=== PATIENT | female | born 1935 | race Caucasian/White ===

== ENCOUNTER 2017-02-08 09:57 | Day surgery (SDC) | payer MEDICARE, BC ==
[2017-02-03 17:31] VITALS: BMI 25.6
[~2017-02-08 09:57] MED LIST: SODIUM CHLORIDE 0.9% 1,000 ML IV SCH; VANCOMYCIN 1,000 MG in SODIUM CHLORIDE 0.9% 250 ML IVPB NR; VANCOMYCIN 1,000 MG in SODIUM CHLORIDE 0.9% IRRIGATIO 1,000 ML IRRIGATION NR
[2017-02-08 10:37] VITALS: RESP 16; TEMP 98.2
[2017-02-08 11:20] LABS: INR 1.1 (<1.1); Prothrombin Time 10.7 sec (9.0-12.0)
[2017-02-08] MEDS ORDERED: fentaNYL (PF) 50 MCG/ML 2 ML AMP IV ONE (12:12)
[2017-02-08] MEDS ORDERED: MIDAZOLAM 2 MG/2 ML VIAL IV ONE (12:12)
[2017-02-08] MEDS ORDERED: LIDOCAINE 1% INJ 10MG/ML (20 ML MDV) SQ ONE (12:23)
[2017-02-08] MEDS ORDERED: HYDROcodone/APAP 5-325MG 1 EACH TAB PO PRN (12:53)
[2017-02-08] MEDS ORDERED: ACETAMINOPHEN TAB 325 MG TAB PO PRN (12:53)
--- NOTE | 2017-02-08 13:14 | P.PCN ---
Date of Procedure: 02/08/17 Preoperative Diagnosis: Battery depletion Postoperative Diagnosis: Battery replacement Procedure(s) Performed: Battery replacement Implants: Indications for Procedure: Operative Findings: Description of Procedure: HISTORY: This is a 81-year-old female with history of a permanent pacemaker implantation for sick sinus syndrome. Patient has reached [facility] and was brought in for elective replacement of the battery. CONSENT: I have discussed the risks and benefits as related to the above mentioned procedure and both sedation/analgesia as well as necessary blood product administration. The patient has indicated understanding and acceptance of the risks of the procedure discussed. PROCEDURE: Patient was brought to the lab in a fasting state. Patient was given IV Versed and fentanyl for sedation. The skin over the existing pulse generator was infiltrated with lidocaine. An incision was made in the skin and was deepened until the pectoral fascia was exposed. Hemostasis was obtained. The existing pulse generator was pulled out of the pocket. The lead was disconnected and were checked for thresholds. THRESHOLDS: VENTRICULAR: The minimum patient threshold is 1 V at a pulse width of 0.5 ms. The impedance was 419 ohms.R-wave : 2.5 mV THE LEADS: VENTRICULAR: This is manufactured by [employer]. Model number is 1488TC/52 and the serial number is [id number] THE NEW DEVICE: This is manufactured by [employer]. Model number is PM 1240 and the serial number is [id number] THE EXPLANTED DEVICE: This is manufactured by [employer]. Model number is 5130 and the serial number is [id number] . The lead was then connected to a new pulse generator . Pacemaker seems to function normally. The pocket was irrigated with antibiotics. The pocket was closed in the usual fashion. Pectoral fascia was closed with 2-0 Prolene, the subcutaneous tissue was closed with 3-0 Prolene and the skin was closed with 4-0 Prolene. Patient tolerated the procedure well . Patient will be monitored on the telemetry unit for 2-3 hours. If stable patient be discharged home later today. PLAN: Patient will be discharged home later today if stable. She will resume Coumadin tonight. She will resume Lovenox from tomorrow evening for 2 days. She will have a pro time on . FALLOW UP: With Dr. Weems in 1 week
[2017-02-08 14:17] VITALS: PULSE 60
[2017-02-08 15:57] VITALS: BP 138/72
--- NOTE | 2017-02-11 10:42 | CDI ---
Dr. Weems Per the Operative report, IV versed and fentanyl was given for sedation. Per new CMS ([employer]ers for Medicare and Medicaid Services) guidelines there is a change by which the work of moderate/conscious sedation will be reimbursed separately from procedure performed. Further clarification of the documentation of IV sedation is needed for proper reporting purposes. Please clarify the type of sedation this patient received during the cardiac catheterization. Moderate/conscious sedation MAC (unconscious sedation) General Anesthesia Other (please specify) Please document your findings in an addendum to the Procedure Note. If you have any questions about this query, you may contact Garage Manager, Joselyn Posey at between 8am and 6pm Wednesday-Wednesday Thank you for your time. RYDER Adams
== END 2017-02-08 16:34 | disposition home or self-care (01) ==
LOC: CATHEP 09:57
PROVIDERS: ATTEND Internal Medicine Cardiovascular Disease
DX: Z45.010 Encounter for checking and testing of cardiac pacemaker pulse generator [battery] (principal); Z95.2 Presence of prosthetic heart valve; I48.2 Chronic atrial fibrillation; I48.92 Unspecified atrial flutter; I49.5 Sick sinus syndrome; E03.9 Hypothyroidism, unspecified; F41.9 Anxiety disorder, unspecified; I27.2 Other secondary pulmonary hypertension; J44.9 Chronic obstructive pulmonary disease, unspecified; E66.3 Overweight; Z68.26 Body mass index [BMI] 26.0-26.9, adult; Z79.01 Long term (current) use of anticoagulants; Z79.82 Long term (current) use of aspirin; Z79.51 Long term (current) use of inhaled steroids; Z79.899 Other long term (current) drug therapy; Z88.1 Allergy status to other antibiotic agents; Z88.0 Allergy status to penicillin; Z87.891 Personal history of nicotine dependence
CPT/HCPCS: 33227; 85610; 99152; 99153; C1786; J2250; J3370; J2001; J3010

== ENCOUNTER 2019-01-04 09:46 | Day surgery (SDC) | payer MEDICARE, BC ==
[2019-01-02 12:06] VITALS: BMI 26.1
[~2019-01-04 09:46] MED LIST changes: +LACTATED RINGERS 1,000 ML IV SCH; +LIDOCAINE 1% 20 ML VIAL (10MG/ML) FOR IV START INTRADERMA PRN; +MOXIFLOXACIN HCL 0.5% DROPS 3 ML BTL OP NR; -SODIUM CHLORIDE 0.9% 1,000 ML IV SCH; +TETRACAINE 0.5% OPHTH (PF) DROPS 4 ML BTL OP NR; +TIMOLOL 0.5% OPHTH DROPS 5 ML BTL OP NR; -VANCOMYCIN 1,000 MG in SODIUM CHLORIDE 0.9% 250 ML IVPB NR; -VANCOMYCIN 1,000 MG in SODIUM CHLORIDE 0.9% IRRIGATIO 1,000 ML IRRIGATION NR
[2019-01-04 10:31] VITALS: TEMP 98
[2019-01-04] MEDS: PILOCARPINE 2% OPHTH DROPS 15 ML BTL OP NR ×3 (10:37→10:47)
[2019-01-04] MEDS ORDERED: HYALURONATE SODIUM INTRAOCULAR 1 EACH SYRINGE (12MG/ML) INTRAOCULA ONE (11:22)
[2019-01-04] MEDS ORDERED: LIDOCAINE (PF) 10 MG/ML 5ML AMP MISCELLANE ONE (11:22)
[2019-01-04] MEDS ORDERED: BALANCED SALT IRRIG SOLN COMB2 15 ML IRRIG.SOLN INTRAOCULA ONE (11:22)
[2019-01-04] MEDS ORDERED: MIDAZOLAM 2 MG/2 ML VIAL ONE (11:25)
[2019-01-04] MEDS ORDERED: fentaNYL (PF) 50 MCG/ML 2 ML AMP ONE (11:25)
[2019-01-04] MEDS ORDERED: EPINEPHrine (PF) 0.3 ML in BALANCED SALT IRRIG SOLN COMB2 500 ML IRRIGATION ONE (11:41)
[2019-01-04] MEDS ORDERED: FLUORESCEIN STRIPS 1 MG STRIP LEFT EYE ONE (12:01)
--- NOTE | 2019-01-04 12:08 | P.OP ---
Date of Procedure: 01/04/19 Preoperative Diagnosis: POAG moderate Postoperative Diagnosis: same Procedure(s) Performed: goniotomy left eye Implants: none Anesthesia: MAC Surgeon: Tarik Che Pathology: none sent Condition: stable Disposition: same day Indications for Procedure: moderate stage glaucoma Operative Findings: No complications, some hyphema
[2019-01-04 12:13] VITALS: RESP 18
[2019-01-04 12:38] VITALS: BP 107/61; PULSE 68
--- NOTE | 2019-01-04 19:55 | OP ---
OPERATIVE REPORT DATE OF SURGERY: January 04, 2019. PROCEDURE PERFORMED: Goniotomy of the left eye. PREOPERATIVE DIAGNOSIS: Primary open-angle glaucoma, moderate stage. POSTOPERATIVE DIAGNOSIS: Primary open angle glaucoma, moderate stage. SURGEON: Dr. Tarik Che. ANESTHESIA: Topical. ESTIMATED BLOOD LOSS: 5 mL. SPECIMEN: Taken none. NARRATIVE: After obtaining the appropriate consent, the patient was brought to the operating room. There she was placed under cardiac monitoring, prepped and draped in the usual sterile manner. She was approached from her left temporal side. At the 3 o'clock position, a 2.5 mm keratome was used to create a self-sealing corneal flap incision. Through this opening, 1% Xylocaine MPF 50 50 mix with balanced salt solution was injected into the anterior chamber. This was followed by placement of Amvisc in the anterior chamber and on the patient's cornea. She was then asked to rotate approximately 45 degrees away to her right to expose the anterior chamber angle. Using a aureliano and meet method, a [place] dual blade goniotomy knife was used to remove the trabecular mesh work for approximately 5 clock hours on the nasal side of the patient's eye. This was accomplished without difficulty. There was significant bleeding that was noted during the post removal phase which required several irrigation aspiration attempts to remove as much of the blood from the anterior chamber as possible. Also due to the low intra- ocular pressure, two sutures were placed at the temporal wound to reduce any egress of aqueous from the anterior chamber and the intra-ocular pressure was brought slightly above normal with balanced salt solution. She then received 2 drops of 0.5% timolol followed by 2 drops of moxifloxacin, was then lightly patched and shielded in the usual manner. She was returned to recovery with her head elevated approximately 45 degrees. There were no additional difficulties encountered during the procedure. She tolerated the procedure well and was returned to outpatient recovery in good condition. MMODL / IJN: [id number] /
== END 2019-01-04 12:42 | disposition home or self-care (01) ==
LOC: OR 09:46
PROVIDERS: ATTEND Ophthalmology
DX: H40.1131 Primary open-angle glaucoma, bilateral, mild stage (principal); H35.372 Puckering of macula, left eye; H52.13 Myopia, bilateral; H52.223 Regular astigmatism, bilateral; H52.4 Presbyopia; H00.023 Hordeolum internum right eye, unspecified eyelid; H00.026 Hordeolum internum left eye, unspecified eyelid; Z88.1 Allergy status to other antibiotic agents; Z88.0 Allergy status to penicillin; Z79.01 Long term (current) use of anticoagulants; Z79.82 Long term (current) use of aspirin; Z79.890 Hormone replacement therapy; Z79.51 Long term (current) use of inhaled steroids; Z79.899 Other long term (current) drug therapy; I48.91 Unspecified atrial fibrillation; I10 Essential (primary) hypertension; E07.9 Disorder of thyroid, unspecified; Z95.0 Presence of cardiac pacemaker; K21.9 Gastro-esophageal reflux disease without esophagitis; J44.9 Chronic obstructive pulmonary disease, unspecified; Z99.81 Dependence on supplemental oxygen
CPT/HCPCS: 65820; J2250; J0171; J2001; J3010

== ENCOUNTER 2021-06-29 23:56 | Inpatient (IN) | payer MEDICARE, BC ==
[2021-06-30] MEDS ORDERED: SODIUM CHLORIDE 0.9% 1,000 ML IV SCH (01:45)
[2021-06-30] MEDS ORDERED: ENOXAPARIN 80 MG/0.8 ML SYRINGE SQ ONE (01:45)
--- NOTE | 2021-06-30 04:43 | ED ---
SOB HPI - General Chief Complaint: Shortness of Breath Stated Complaint: YE Time Seen by Provider: 06/29/21 23:57 Source: patient, EMS Mode of arrival: EMS Limitations: no limitations - History of Present Illness Initial Comments: This patient is an 85-year-old woman who presents here as a transfer from [facility]. The patient had gone there with complaint that her breathing has worsened over the past 1-2 days. The patient has history of COPD and she believes also some underlying CHF. She also has history of atrial fibrillation and she did stop her blood thinning medication 3 days ago so that she could have a tooth extracted this week. The patient did not notice fever or chills. Has cough but nonproductive. No chest pain. No leg pain or swelling. MD Complaint: shortness of breath -: days(s) Severity scale (1-10): 0 Consistency: constant Improves With: nothing Worsens With: nothing Known History Of: COPD Associated Symptoms: cough - Related Data Home Oxygen Therapy: Yes Home Oxygen Amount: 2 Liters Home Medications Medication Instructions Recorded Confirmed Aspirin [Adult Low Dose Aspirin EC] 81 mg PO MOWEFR 02/03/17 01/04/19 Bimatoprost [Lumigan .01% Ophth 1 drop BOTH EYES HS 02/03/17 01/04/19 Soln] Brinzolamide [Azopt 1% Ophth Susp] 1 drop BOTH EYES BID 02/03/17 01/04/19 Budesonide-Formot 160-4.5 Mcg 2 puff INHALATION BID 02/03/17 01/04/19 [Symbicort 160-4.5 Mcg Inhaler] Digoxin [Lanoxin] 125 mcg PO DAILY 02/03/17 01/04/19 Eszopiclone [Lunesta] 2 mg PO HS 02/03/17 01/04/19 Furosemide [Lasix] 40 mg PO QAM 02/03/17 01/04/19 Lansoprazole [Prevacid] 30 mg PO DAILY 02/03/17 01/04/19 Levothyroxine Sodium [Synthroid] 300 mcg PO DAILY 02/03/17 01/04/19 Losartan [Cozaar] 50 mg PO HS 02/03/17 01/04/19 Montelukast [Singulair] 10 mg PO DAILY 02/03/17 01/04/19 PARoxetine HCL [Paxil] 5 mg PO DAILY 02/03/17 01/04/19 Potassium Chloride [Klor-Con 10 ER] 10 meq PO QAM 02/03/17 01/04/19 Warfarin Sodium [Coumadin] 5 mg PO PC-SUPPER 02/03/17 01/04/19 atenoloL [Tenormin] 50 mg PO DAILY 02/03/17 01/04/19 Albuterol Sulfate [Proair Hfa] 2 puff INHALATION DIRECTED PRN 01/02/19 01/04/19 Budesonide-Formot 160-4.5 Mcg 2 puff INHALATION BID 01/02/19 01/04/19 [Symbicort 160-4.5 Mcg Inhaler] Tiotropium 18 Mcg/Puff [Spiriva] 2 puff INHALATION DAILY 01/02/19 01/04/19 Allergies Allergy/AdvReac Type Severity Reaction Status Date / Time clindamycin Allergy Vomiting Verified 01/04/19 10:24 Penicillins Allergy Swelling, Verified 01/04/19 10:24 itching, red skin Review of Systems ROS Statement: Those systems with pertinent positive or pertinent negative responses have been documented in the HPI. ROS Other: All systems not noted in ROS Statement are negative. Constitutional: Denies: fever, chills Respiratory: Reports: cough, dyspnea, wheezes. Denies: hemoptysis Cardiovascular: Denies: chest pain, palpitations Gastrointestinal: Denies: abdominal pain, nausea, vomiting Genitourinary: Denies: dysuria Musculoskeletal: Denies: back pain Skin: Denies: rash Neurological: Denies: headache, weakness Past Medical History Past Medical History: Atrial Fibrillation, Asthma, Heart Failure, COPD, GERD/Reflux, Hypertension, Thyroid Disorder Additional Past Medical History / Comment(s): leaky heart valve, varicose veins, uses oxygen at night, History of Any Multi-Drug Resistant Organisms: None Reported Past Surgical History: Cardiac Valve Replacement, Section, Cho lecystectomy, Heart Catheterization, Pacemaker, Tonsillectomy Additional Past Surgical History / Comment(s): mitral valve replacement 1999, ashley cataracts Past Anesthesia/Blood Transfusion Reactions: No Reported Reaction Additional Past Anesthesia/Blood Transfusion Reaction / Comment(s): adopted Type of Cardiac Device: Permanent Pacemaker Device Placement Date:: 2016 Past Psychological History: No Psychological Hx Reported Smoking Status: Never smoker Past Alcohol Use History: None Reported Past Drug Use History: None Reported - Past Family History Mother Family Medical History: Unable to Obtain Additional Family Medical History / Comment(s): adopted General Exam Limitations: no limitations General appearance: alert, in no apparent distress Head exam: Present: atraumatic, normocephalic Eye exam: Present: normal appearance. Absent: scleral icterus, conjunctival injection ENT exam: Present: normal oropharynx Respiratory exam: Present: wheezes, prolonged expiratory. Absent: respiratory distress, rales, rhonchi, stridor, accessory muscle use, decreased breath sounds Cardiovascular Exam: Present: regular rate, normal rhythm, normal heart sounds. Absent: systolic murmur, diastolic murmur, rubs, gallop GI/Abdominal exam: Present: soft. Absent: distended, tenderness, guarding, rebound, rigid, mass Extremities exam: Present: normal inspection, normal capillary refill. Absent: pedal edema, calf tenderness Back exam: Present: normal inspection. Absent: CVA tenderness (R), CVA tenderness (L) Neurological exam: Present: alert Skin exam: Present: warm, dry, intact, normal color. Absent: rash Course Vital Signs 06/30/21 06/30/21 00:01 02:41 Temperature 98.4 F Pulse Rate 74 67 Respiratory 18 18 Rate Blood Pressure 114/59 97/65 O2 Sat by Pulse 99 98 Oximetry Disposition Disposition: ADMITTED IP TO THIS HOSP Condition: Fair
[2021-06-30] MEDS ORDERED: LEVOTHYROXINE 100 MCG TAB PO SCH (06:30)
[2021-06-30] MEDS: IPRATROPIUM-ALBUTEROL 3 ML NEB INHALATION SCH ×4 (07:37→19:59)
[2021-06-30] MEDS ORDERED: IPRATROPIUM 0.5 MG/2.5 ML NEBU INHALATION SCH (08:00)
[2021-06-30] MEDS ORDERED: SYMBICORT 160-4.5 MCG INHALER INHALATION SCH (08:00)
[2021-06-30] MEDS ORDERED: ALBUTEROL NEBULIZED 2.5 MG/3 ML INHALATION SCH (08:00)
[2021-06-30] MEDS ORDERED: LEVOFLOXACIN 750MG-D5W PMX 750 MG in DEXTROSE/WATER 1 150ML.BAG IVPB SCH (09:00)
[2021-06-30] MEDS: MONTELUKAST 10 MG TAB PO SCH (09:11)
[2021-06-30] MEDS: atenoloL 50 MG TAB PO SCH (09:11)
[2021-06-30] MEDS: ASPIRIN 81 MG PO SCH (09:12)
[2021-06-30] MEDS: POTASSIUM CHLORIDE ER 10 MEQ TAB.ER.PRT PO SCH (09:12)
[2021-06-30] MEDS: DIGOXIN 125 MCG TAB PO SCH (09:12)
[2021-06-30] MEDS: PANTOPRAZOLE 40 MG TABLET PO SCH (09:12)
[2021-06-30] MEDS: DORZOLAMIDE HCL 2% DROPS 10 ML BTL BOTH EYES SCH ×2 (09:15→23:12)
--- NOTE | 2021-06-30 09:16 | NM ---
EXAMINATION TYPE: NM pul vent and perfuse DATE OF EXAM: 06/30/2021 COMPARISON: Chest x-ray 06/29/2021 HISTORY: Difficulty breathing, rule out pulmonary embolus TECHNIQUE: Utilizing inhalation of 37 mCi Tc 99m DTPA aerosol and intravenous injection of 4.3 mCi o f Tc 99m MAA, ventilation and perfusion images are acquired post injection in multiple projections. FINDINGS: Decreased uptake noted at the right lung base on ventilation and perfusion imaging, triple matched de fect, there is a large area of abnormal attenuation seen on plain film related to the right heart bor estee, cardiomegaly, there is pleural effusion. Perfusion uptake is somewhat better than ventilation up take, central clumping of the radiopharmaceutical could be due to underlying COPD There is no evidenc e of mismatched defects. IMPRESSION: Intermediate probability for pulmonary embolism.
[2021-06-30] MEDS ORDERED: LOSARTAN 50 MG TAB PO SCH (10:30)
[2021-06-30] MEDS ORDERED: FUROSEMIDE 80 MG TAB PO SCH (10:30)
[2021-06-30] MEDS ORDERED: SYMBICORT 80-4.5 MCG INHALER INHALATION SCH (10:30)
--- NOTE | 2021-06-30 10:48 | ECHOF ---
Referral Reason:Heart Failure MEASUREMENTS -------- HEIGHT: 157.5 cm WEIGHT: 68.0 kg BP: RVIDd: 4.0 cm (< 3.3) IVSd: 1.1 cm (0.6 - 1.1) LVIDd: 3.8 cm (3.9 - 5.3) LVPWd: 1.2 cm (0.6 - 1.1) IVSs: 1.5 cm LVIDs: 2.2 cm LVPWs: 2.2 cm Ao Diam: 3.4 cm (2.0 - 3.7) AV Cusp: 1.1 cm (1.5 - 2.6) LA Diam: 6.0 cm (2.7 - 3.8) MV E Nate: 0.27 m/s MV DecT: 281 ms MV A Nate: 0.50 m/s MV E/A Ratio: 0.54 AV maxP.29 mmHg AV meanP.62 mmHg AR PHT: 590 ms RAP: 15.00 mmHg RVSP: 48.56 mmHg FINDINGS -------- Paced rhythm. This was a technically difficult study with suboptimal views. The left ventricular size is normal. There is mild concentric left ventricular hypertrophy. Overa ll left ventricular systolic function is normal with, an EF between 55 - 60 %. There is paradoxical /dysynergic septal motion consistent with right ventricular volume overload and/or elevated right emigdio tricular end-diastolic pressure. The right ventricle is moderately enlarged. The left atrium is markedly dilated. The right atrial size is normal. Lumason used Aortic valve is trileaflet and is mildly thickened. There is no evidence of aortic regurgitation. There is moderate aortic stenosis present. Peak/mean gradient across the Aortic Valve is 31.29mmHg / 16.62mmHg. Mild mitral regurgitation is present. Mechanical MVR is well seated. The tricuspid valve appears structurally normal. Severe tricuspid regurgitation present. There is moderate pulmonary hypertension. The right ventricular systolic pressure, as measured by Doppler, is 48.56mmHg. Trace/mild (physiologic) pulmonic regurgitation. The aortic root size is normal. The inferior vena cava is mildly dilated. There is no pericardial effusion. CONCLUSIONS -------- 1. The left ventricular size is normal. 2. There is mild concentric left ventricular hypertrophy. 3. Overall left ventricular systolic function is normal with, an EF between 55 - 60 %. 4. There is paradoxical/dysynergic septal motion consistent with right ventricular volume overload an d/or elevated right ventricular end-diastolic pressure. 5. The right ventricle is moderately enlarged. 6. Aortic valve is trileaflet and is mildly thickened. 7. There is no evidence of aortic regurgitation. 8. There is moderate aortic stenosis present. 9. Peak/mean gradient across the Aortic Valve is 31.29mmHg / 16.62mmHg. 10. Mild mitral regurgitation is present. 11. Mechanical MVR is well seated. 12. Severe tricuspid regurgitation present. 13. There is moderate pulmonary hypertension. 14. The right ventricular systolic pressure, as measured by Doppler, is 48.56mmHg. 15. Trace/mild (physiologic) pulmonic regurgitation. 16. The inferior vena cava is mildly dilated. 17. There is no pericardial effusion. OYSTER HARVESTER: Wanda Espinosa RDCS
[2021-06-30 11:02] LABS: Basophils % (A) 0 %; Eosinophils % (A) 0 %; HCT 29.4 % (34.0-46.0); HGB 9.8 gm/dL (11.4-16.0); Lymphocytes # (A) 0.4 k/uL (1.0-4.8); Lymphocytes % (A) 5 %; MCH 31.4 pg (25.0-35.0); MCHC 33.1 g/dL (31.0-37.0); MCV 94.8 fL (80.0-100.0); Mean Platelet Volume 8.8; Monocytes # (A) 0.2 k/uL (0-1.0); Monocytes % (A) 3 %; Neutrophils # (A) 7.4 k/uL (1.3-7.7); Neutrophils % (A) 91 %; RBC 3.11 m/uL (3.80-5.40); RDW 15.5 % (11.5-15.5); WBC 8.1 k/uL (3.8-10.6)
--- NOTE | 2021-06-30 11:12 | P.CNPUL ---
History of Present Illness Consult date: 06/30/21 Requesting physician: Zach Katz Reason for consult: dyspnea, COPD, hypoxemia, pleural effusion, abnormal CXR/CT Chief complaint: Shortness of breath. History of present illness: Pulmonary consultation dated 06/30/2021. This is an 85-year-old female with a history of multiple medical problems including atrial fibrillation, COPD, CHF, gastroesophageal reflux disease, hypertension, and hypothyroidism, who presents to the emergency department at [facility] in [place]. The patient was transferred down here to be evaluated. She was initially seen by the ER physician. She is a very poor historian but apparently her son noticed that she was having some difficulty in breathing, and she was shaking. She hadn't been feeling well for a couple days prior to admission. The patient apparently stopped her Coumadin a couple days ago, because she was going to have a tooth extracted today. A ventilation perfusion scan was ordered, and was indeterminate. Currently, she is on 2 L, nasal cannula. She's getting an IV at [facility], and IV Levaquin. She looks very comfortable, and is feeling much improved. Her primary physician in that area is Dr. Eboni Chaney. Labs and x-rays are ordered but are not yet back. The perfusion lung scan was determined to be intermediate probability for pulmonary embolism. Echocardiogram was ordered but not yet interpreted. Review of Systems REVIEW OF SYSTEMS: CONSTITUTIONAL: Weakness. NEUROLOGIC: Shaking. HEENT: [ Negative.] CARDIAC: [Negative.] PULMONARY: Shortness of breath. GI: [Negative.] : [Negative.] RHEUMATOLOGIC: [ Negative.] IMMUNOLOGIC: [ Negative.] ENDOCRINE: [Negative. ] DERMATOLOGIC: [Negative.] Past Medical History Past Medical History: Atrial Fibrillation, Asthma, Heart Failure, COPD, GERD/Reflux, Hypertension, Thyroid Disorder Additional Past Medical History / Comment(s): leaky heart valve, varicose veins, uses oxygen at night, History of Any Multi-Drug Resistant Organisms: None Reported Past Surgical History: Cardiac Valve Replacement, Section, Cholecystectomy, Heart Catheterization, Pacemaker, Tonsillectomy Additional Past Surgical History / Comment(s): mitral valve replacement 1999, ashley cataracts Past Anesthesia/Blood Transfusion Reactions: No Reported Reaction Additional Past Anesthesia/Blood Transfusion Reaction / Comment(s): adopted Type of Cardiac Device: Permanent Pacemaker Device Placement Date:: 2016 Past Psychological History: No Psychological Hx Reported Smoking Status: Never smoker Past Alcohol Use History: None Reported Past Drug Use History: None Reported - Past Family History Mother Family Medical History: Unable to Obtain Additional Family Medical History / Comment(s): adopted Medications and Allergies Home Medications Medication Instructions Recorded Confirmed Type Bimatoprost [Lumigan .01% Ophth 1 drop BOTH EYES HS 02/03/17 06/30/21 History Soln] Brinzolamide [Azopt 1% Ophth Susp] 1 drop RIGHT EYE BID 02/03/17 06/30/21 History Digoxin [Lanoxin] 125 mcg PO DAILY 02/03/17 06/30/21 History Eszopiclone [Lunesta] 2 mg PO HS 02/03/17 06/30/21 History Furosemide [Lasix] 80 mg PO DAILY 02/03/17 06/30/21 History Lansoprazole [Prevacid] 30 mg PO DAILY 02/03/17 06/30/21 History Montelukast [Singulair] 10 mg PO DAILY 02/03/17 06/30/21 History PARoxetine HCL [Paxil] 5 mg PO DAILY 02/03/17 06/30/21 History Potassium Chloride [Klor-Con 10 ER] 20 meq PO DAILY 02/03/17 06/30/21 History Warfarin Sodium [Coumadin] 5 mg PO HS 02/03/17 06/30/21 History atenoloL [Tenormin] 50 mg PO DAILY 02/03/17 06/30/21 History Calcium Carbonate/Vitamin D3 1 tab PO DAILY 06/30/21 06/30/21 History [Calcium 600 mg-Vit D3 5 mcg (200 unit)] Fluticasone/Umeclidin/Vilanter 1 puff INHALATION RT-DAILY 06/30/21 06/30/21 History [Trelegy Ellipta 100-62.5-25] Furosemide [Lasix] 40 mg PO DAILY@1500 06/30/21 06/30/21 History Levothyroxine Sodium [Synthroid] 75 mcg PO DAILY 06/30/21 06/30/21 History Losartan Potassium 100 mg PO DAILY 06/30/21 06/30/21 History Meclizine [Antivert] 12.5 mg PO Q6H PRN 06/30/21 06/30/21 History Spironolactone [Aldactone] 25 mg PO DAILY 06/30/21 06/30/21 History Warfarin [Coumadin] 0.5 mg PO HS 06/30/21 06/30/21 History hydrALAZINE HCL [Apresoline] 25 mg PO BID 06/30/21 06/30/21 History Allergies Allergy/AdvReac Type Severity Reaction Status Date / Time Penicillins Allergy Swelling, Verified 06/30/21 09:30 itching, red skin clindamycin AdvReac Vomiting Verified 06/30/21 09:30 Physical Exam Osteopathic Statement: *. No significant issues noted on an osteopathic structural exam other than those noted in the History and Physical/Consult. Vitals: Vital Signs Temp Pulse Resp BP Pulse Ox 06/30/21 09:05 98.2 F 60 18 120/60 98 06/30/21 02:41 67 18 97/65 98 06/30/21 00:01 98.4 F 74 18 114/59 99 Intake and Output 06/29/21 06/30/21 06/30/21 22:59 06:59 14:59 Other: Weight 68.039 kg No acute distress, oriented 3. Currently on 2 L nasal cannula. No evidence of any respiratory distress including use of accessory muscles or conversational dyspnea. No audible wheezing. HEENT examination is grossly unremarkable. Neck supple. Full range of motion. No adenopathy thyromegaly or neck vein distention. Cardiovascular examination reveals regular rhythm rate. S1-S2 normal. No S3 or S4. No discernible murmur noted. Heart sounds are distant. Heart rate 60 bpm. Lungs reveal bilateral mild to moderate rhonchi. A few basilar crackles. No wheezes. Breath sounds equal bilaterally. Saturations are 98% on 2 L. Abdomen soft bowel sounds are heard. No masses or tenderness. Extremities are intact. No cyanosis clubbing or edema. Skin is without rash or lesion. Neurologic examination is brief but nonfocal. Assessment and Plan Assessment: Acute hypoxemic respiratory failure, likely multifactorial, in part related to underlying COPD exacerbation, possible CHF, and also possible pneumonia. History of chronic atrial fibrillation, chronically on Coumadin, which has been stopped recently for a dental extraction. Status post pacemaker insertion and mitral valve surgery. History of asthma. History of CHF. Gastroesophageal reflux disease. History of essential hypertension. Hypothyroidism. Lifelong nontobacco use. Plan: Plan dated 06/30/2021. There is no x-ray to review so one was ordered. Likewise, we had old labs from the outside hospital. Hence, labs are ordered including a CBC, comprehensive metabolic profile, pro-calcitonin level and BNP. Additional recommendations and suggestions are forthcoming. Prognosis is guarded. Currently, the patient looks very comfortable. She's currently on 2 L. She is receiving IV Levaquin. The pro-calcitonin level at the outside hospital was very elevated. Repeated here. Additional recommendations and suggestions are forthcoming. Time with Patient: Greater than 30
[2021-06-30 11:13] LABS: INR 1.1 (<1.2); Prothrombin Time 11.4 sec (9.0-12.0)
[2021-06-30 11:30] LABS: Platelet Count 105 k/uL (150-450)
[2021-06-30] MEDS: SPIRONOLACTONE 25 MG TAB PO SCH (12:00)
[2021-06-30] MEDS: hydrALAZINE HCL 25 MG TAB PO SCH ×2 (12:01→20:45)
[2021-06-30 12:36] LABS: Albumin 3.1 g/dL (3.5-5.0); Calcium 8.5 mg/dL (8.4-10.2); Potassium 4.9 mmol/L (3.5-5.1); Total Protein 5.6 g/dL (6.3-8.2)
[2021-06-30] MEDS: CALCIUM CARB-VIT D 500 MG-5 MCG TAB PO SCH (13:08)
[2021-06-30] MEDS: PARoxetine 10 MG TAB PO SCH (13:08)
[2021-06-30] MEDS: LEVOTHYROXINE 75 MCG TAB PO SCH (13:08)
[2021-06-30] MEDS ORDERED: FUROSEMIDE 40 MG TAB PO SCH (15:00)
--- NOTE | 2021-06-30 16:00 | XR ---
EXAMINATION TYPE: XR chest 2V DATE OF EXAM: 06/30/2021 COMPARISON: Chest x-ray 06/29/2021 from outside institution HISTORY: COPD TECHNIQUE: Frontal and lateral views of the chest are obtained. FINDINGS: Findings are similar to prior exam. Patient is post median sternotomy. There is a generato r in the left pectoral region. The heart is enlarged. Interstitium appears improved. There is a lead in the right atrium. There is blunting the right cost phrenic angle. No evident pneumothorax. Aorta i s dense. IMPRESSION: Marked cardiomegaly, probable right pleural effusion and associated atelectasis, correla te to exclude pneumonia. There may be improvement in interstitial edema.
--- NOTE | 2021-06-30 18:03 | P.HPIM ---
History of Present Illness H&P Date: 06/30/21 Chief Complaint: Short of breath This is a pleasant 85-year-old patient Dr. Eboni Chaney. Patient is transferred here from [facility]. Patient at the baseline uses 2 L of oxygen at night. Able to get from the house. Patient presents with worsening short of breath for last 4 days. No edema. No cough. She having chills. Decreased appetite. Patient been having 3 or 4 bowel movements a day. Soft. Patient is underlying atrial fibrillation rate controlled. Patient had her Coumadin discontinued 3 days ago for about towards intervention. Patient did test negative for influenza AB and COVID another hospital. Patient has some urinary symptoms. Review of systems: GEN.: Tired chills decreased appetite EYES: None HEENT: None NECK: None RESPIRATORY: As above CARDIOVASCULAR: None GASTROINTESTINAL: Some loose stools GENITOURINARY: As above MUSCULOSKELETAL: Joint pains LYMPHATICS: None HEMATOLOGICAL: None PSYCHIATRY: None NEUROLOGICAL: None Past medical history to include: Atrial fibrillation, COPD, CHF, GERD, hypertension, hypothyroid, varicose veins, home oxygen 2 L at night Social history: Lives alone. Smoked a pack a day for 20 years stopped in 1977. Family history: Adopted Physical examination: VITAL SIGNS: 98.4, 74, 18, 140s/59, 99% on 3 L GENERAL: BMI 27.4, reclining in bed, slightly short of breath, not in distress. EYES: Pupils equal. Conjunctiva normal. HEENT: External appearance of nose and ears normal, oral cavity grossly normal. NECK: JVD not raised; masses not palpable. HEART: Irregular heart sounds; no edema. LUNGS: Respiratory rate increased; decreased breaths on mild wheezing, occasional crackles. ABDOMEN: Soft, nontender, liver spleen not palpable, no masses palpable. PSYCH: Alert and oriented x3; mood and affect normal MUSCULAR skeletal: Evidence of OA. NEUROLOGICAL: Cranial nerves grossly intact; no facial asymmetry, power and sensation grossly intact. LYMPHATICS: No lymph nodes palpable in the axilla and neck INVESTIGATIONS, reviewed in the clinical context: WBC 8.1 hemoglobin 9.8 platelets 105 lymphocytes 0.4 sodium 126 potassium 4.9 BUN 61 creatinine 2.03 Pro-calcitonin 30.9 EKG tracing personally reviewed by me-atrial fibrillation with some ST segment changes. VQ scan: Intermediate probably for PE. 2-D echocardiogram: EF 55-60%. Moderate aortic stenosis. Mechanical mitral valve. Severe tricuspid regurgitation. Moderate pulmonary hypertension. Chest x-ray film personally reviewed by me-right upper lobe infiltrate and possible right basilar infiltrate/effusion Assessment and plan: -Suspect right-sided pneumonia. Gram-negative organism possibly. Patient presents with chills and 4 days of increasing shortness of breath. Started on IV Levaquin by pulmonary. -Acute COPD exacerbation in an ex-smoker DuoNeb. Changed to inhaled Pulmicort and Perforomist. IV Solu-Medrol. -Hyponatremia from decreased solute intake Encourage oral intake. Increase IV fluids to 50 mL an hour. -Hypothyroid Synthroid 75 g a day -Essential hypertension with CK D. Currently blood pressure running on the lower side. Continue atenolol 50 mg day. Cut back Cozaar to 50 mg daily. [Stop the 100 mg dose] -Possible CKD. Ultrasound. UA. Hold Lasix for now. Follow renal function closely. Patient is getting 150 mg of Cozaar. Decreased to 50 mg daily. -Anxiety not otherwise specified Paxil 20 mg daily -Pacemaker for sick sinus syndrome Telemetry -Mechanical mitral valve Follow INR. Lovenox 70 mg subcu every 12 hours until INR therapeutic. Past Medical History Past Medical History: Atrial Fibrillation, Asthma, Heart Failure, COPD, GERD/Reflux, Hypertension, Thyroid Disorder Additional Past Medical History / Comment(s): leaky heart valve, varicose veins, uses oxygen at night, History of Any Multi-Drug Resistant Organisms: None Reported Past Surgical History: Cardiac Valve Replacement, Section, Cholecystectomy, Heart Catheterization, Pacemaker, Tonsillectomy Additional Past Surgical History / Comment(s): mitral valve replacement 1999, ashley cataracts Past Anesthesia/Blood Transfusion Reactions: No Reported Reaction Additional Past Anesthesia/Blood Transfusion Reaction / Comment(s): adopted Type of Cardiac Device: Permanent Pacemaker Device Placement Date:: 2016 Past Psychological History: No Psychological Hx Reported Smoking Status: Never smoker Past Alcohol Use History: None Reported Past Drug Use History: None Reported - Past Family History Mother Family Medical History: Unable to Obtain Additional Family Medical History / Comment(s): adopted Medications and Allergies Home Medications Medication Instructions Recorded Confirmed Type Bimatoprost [Lumigan .01% Ophth 1 drop BOTH EYES HS 02/03/17 06/30/21 History Soln] Brinzolamide [Azopt 1% Ophth Susp] 1 drop RIGHT EYE BID 02/03/17 06/30/21 History Digoxin [Lanoxin] 125 mcg PO DAILY 02/03/17 06/30/21 History Eszopiclone [Lunesta] 2 mg PO HS 02/03/17 06/30/21 History Furosemide [Lasix] 80 mg PO DAILY 02/03/17 06/30/21 History Lansoprazole [Prevacid] 30 mg PO DAILY 02/03/17 06/30/21 History Montelukast [Singulair] 10 mg PO DAILY 02/03/17 06/30/21 History PARoxetine HCL [Paxil] 5 mg PO DAILY 02/03/17 06/30/21 History Potassium Chloride [Klor-Con 10 ER] 20 meq PO DAILY 02/03/17 06/30/21 History Warfarin Sodium [Coumadin] 5 mg PO HS 02/03/17 06/30/21 History atenoloL [Tenormin] 50 mg PO DAILY 02/03/17 06/30/21 History Calcium Carbonate/Vitamin D3 1 tab PO DAILY 06/30/21 06/30/21 History [Calcium 600 mg-Vit D3 5 mcg (200 unit)] Fluticasone/Umeclidin/Vilanter 1 puff INHALATION RT-DAILY 06/30/21 06/30/21 History [Trelegy Ellipta 100-62.5-25] Furosemide [Lasix] 40 mg PO DAILY@1500 06/30/21 06/30/21 History Levothyroxine Sodium [Synthroid] 75 mcg PO DAILY 06/30/21 06/30/21 History Losartan Potassium 100 mg PO DAILY 06/30/21 06/30/21 History Meclizine [Antivert] 12.5 mg PO Q6H PRN 06/30/21 06/30/21 History Spironolactone [Aldactone] 25 mg PO DAILY 06/30/21 06/30/21 History Warfarin [Coumadin] 0.5 mg PO HS 06/30/21 06/30/21 History hydrALAZINE HCL [Apresoline] 25 mg PO BID 06/30/21 06/30/21 History Allergies Allergy/AdvReac Type Severity Reaction Status Date / Time Penicillins Allergy Swelling, Verified 06/30/21 09:30 itching, red skin clindamycin AdvReac Vomiting Verified 06/30/21 09:30 Physical Exam Vitals: Vital Signs Temp Pulse Resp BP Pulse Ox 06/30/21 09:05 98.2 F 60 18 120/60 98 06/30/21 02:41 67 18 97/65 98 06/30/21 00:01 98.4 F 74 18 114/59 99 Intake and Output 06/29/21 06/30/21 06/30/21 22:59 06:59 14:59 Other: Weight 68.039 kg Results CBC & Chem 7: 06/30/21 10:42 06/30/21 10:42
--- NOTE | 2021-06-30 19:28 | US ---
EXAMINATION TYPE: US kidneys/renal and bladder DATE OF EXAM: 06/30/2021 COMPARISON: NONE CLINICAL HISTORY: Assessment for chronic kidney disease. Assess for CKD. Hx renal cyst. EXAM MEASUREMENTS: Right Kidney: 9.3 x 4.2 x 4.4 cm Left Kidney: 9.1 x 4.5 x 4.8 cm Right Kidney: Anechoic area seen inferiorly: 1.6 x 1.6 x 1.7 cm. Complex area seen mid-inferior: 1.9 x 1.1 x 1.2 cm. No hydronephrosis. Left Kidney: Anechoic area seen superiorly: 2.4 x 1.6 x 1.7 cm. Subcentimeter anechoic area seen mid. No hydronephrosis. Bladder: Appears anechoic. Bilateral Jets seen: No IMPRESSION: No hydronephrosis. Bilateral renal cysts to include mildly complex cyst in the right kidney midpole. Recommend one-year follow-up to document stability if no prior studies available for comparison.
[2021-06-30] MEDS ORDERED: ZOLPIDEM 5 MG TAB PO PRN (19:56)
[2021-06-30] MEDS: FORMOTEROL FUMARATE 20 MCG/2 ML NEBU INHALATION SCH (20:00)
[2021-06-30] MEDS: BUDESONIDE 1 MG/2 ML NEBU INHALATION SCH (20:00)
[2021-06-30 20:36] LABS: Glucose,Whole Blood 132 mg/dL (75-99)
[2021-06-30] MEDS: INSULIN DETEMIR (LEVEMIR) 100 UNIT/ML SYR SQ SCH (20:44)
[2021-06-30] MEDS: TEMAZEPAM 15 MG CAP PO SCH (20:44)
[2021-06-30] MEDS: methylPREDNISolone SOD SUCCI 40 MG/ML 1 ML VIAL IV SCH ×2 (20:45→23:43)
[2021-06-30] MEDS: INSULIN ASPART (NovoLOG) 100 UNIT/ML VIAL SQ SCH (20:45)
[2021-06-30] MEDS: LOSARTAN 50 MG TAB PO SCH (20:46)
[2021-06-30] MEDS ORDERED: ENOXAPARIN 30 MG/0.3 ML SYRINGE SQ SCH (21:00)
[2021-06-30] MEDS: WARFARIN 5 MG TAB PO SCH (21:29)
[2021-06-30] MEDS: WARFARIN 0.5 MG TAB PO SCH (21:30)
[2021-06-30] MEDS: ENOXAPARIN 80 MG/0.8 ML SYRINGE SQ SCH (21:30)
[2021-06-30] MEDS: SODIUM CHLORIDE 0.9% 1,000 ML IV SCH (23:12)
[2021-06-30] MEDS: LATANOPROST 0.005% OPHTH DROPS 2.5 ML BTL BOTH EYES SCH (23:12)
[2021-07-01 03:41] LABS: Appearance,Urine Clear (Clear); Bilirubin,Urine Negative (Negative); Blood,Urine Negative (Negative); Color,Urine Light Yellow; Glucose,Urine (UA) Negative (Negative); Ketones,Urine Negative (Negative); Leukocyte Esterase,Urine Negative (Negative); Nitrite,Urine Negative (Negative); Protein,Urine Negative (Negative); Specific Gravity,Urine 1.009 (1.001-1.035); Urobilinogen,Urine <2.0 mg/dL (<2.0)
[2021-07-01 06:13] LABS: Glucose,Whole Blood 140 mg/dL (75-99)
[2021-07-01] MEDS: LEVOTHYROXINE 75 MCG TAB PO SCH (06:15)
[2021-07-01] MEDS: INSULIN ASPART (NovoLOG) 100 UNIT/ML VIAL SQ SCH ×4 (06:17→21:11)
[2021-07-01 07:53] LABS: Calcium 8.9 mg/dL (8.4-10.2); Potassium 4.7 mmol/L (3.5-5.1)
[2021-07-01 07:59] LABS: Prothrombin Time 10.6 sec (9.0-12.0)
[2021-07-01] MEDS: BUDESONIDE 1 MG/2 ML NEBU INHALATION SCH ×2 (08:17→19:21)
[2021-07-01] MEDS: IPRATROPIUM-ALBUTEROL 3 ML NEB INHALATION SCH ×4 (08:17→19:21)
[2021-07-01] MEDS: FORMOTEROL FUMARATE 20 MCG/2 ML NEBU INHALATION SCH ×2 (08:17→19:29)
[2021-07-01] MEDS: ENOXAPARIN 80 MG/0.8 ML SYRINGE SQ SCH ×2 (09:29→21:10)
[2021-07-01] MEDS: methylPREDNISolone SOD SUCCI 40 MG/ML 1 ML VIAL IV SCH ×2 (09:29→21:10)
[2021-07-01] MEDS: SPIRONOLACTONE 25 MG TAB PO SCH (09:29)
[2021-07-01] MEDS: hydrALAZINE HCL 25 MG TAB PO SCH ×2 (09:30→21:08)
[2021-07-01] MEDS: CALCIUM CARB-VIT D 500 MG-5 MCG TAB PO SCH (09:30)
[2021-07-01] MEDS: PANTOPRAZOLE 40 MG TABLET PO SCH (09:30)
[2021-07-01] MEDS: PARoxetine 10 MG TAB PO SCH (09:30)
[2021-07-01] MEDS: POTASSIUM CHLORIDE ER 10 MEQ TAB.ER.PRT PO SCH (09:30)
[2021-07-01] MEDS: atenoloL 50 MG TAB PO SCH (09:30)
[2021-07-01] MEDS: DIGOXIN 125 MCG TAB PO SCH (09:30)
[2021-07-01] MEDS: MONTELUKAST 10 MG TAB PO SCH (09:30)
[2021-07-01 11:13] VITALS: BMI 27.6
[2021-07-01] MEDS: DORZOLAMIDE HCL 2% DROPS 10 ML BTL BOTH EYES SCH ×2 (11:39→21:17)
[2021-07-01 11:52] LABS: Glucose,Whole Blood 117 mg/dL (75-99)
--- NOTE | 2021-07-01 12:32 | P.PN ---
Progress Note - Text Progress Note Date: 07/01/21 Chief Complaint: Short of breath This is a pleasant 85-year-old patient Dr. Eboni Chaney. [facility] Patient at the baseline uses 2 L of oxygen at night. Able to get from the house. Patient presents with worsening short of breath for last 4 days. No edema. No cough. She having chills. Decreased appetite. Patient been having 3 or 4 bowel movements a day. Soft. Patient is underlying atrial fibrillation rate controlled. Patient had her Coumadin discontinued 3 days ago for about towards intervention. Patient did test negative for influenza AB and COVID another hospital. Patient has some urinary symptoms. Admitted with right-sided pneumonia, COPD exacerbation, hyponatremia. Started on IV Levaquin. IV fluids for renal failure. Does off Cozaar cutback. IV Solu-Medrol. INR subtherapeutic. Started on Lovenox therapeutic dose. 07/01/2021: Feeling better. Sitting up on a chair. Decreased wheezing. Eating better. Renal function some improvement. IV fluids increased 200 mL an hour. IV Solu-Medrol cutback to every 12. Review of systems: Was done for constitutional, cardiovascular, GI, pulmonary. relevant finding as above Active Medications Albuterol/Ipratropium (Ipratropium-Albuterol 3 Ml Neb) 3 ml INHALATION RT-QID [facility] Last Admin: 07/01/21 11:30 Dose: 3 ml Documented by: Aspirin (Aspirin 81 Mg) 81 mg PO MOWEFR [facility] Last Admin: 06/30/21 09:12 Dose: 81 mg Documented by: Atenolol (Atenolol 50 Mg Tab) 50 mg PO DAILY [facility] Last Admin: 07/01/21 09:30 Dose: 50 mg Documented by: Budesonide (Budesonide 1 Mg/2 Ml Nebu) 1 mg INHALATION RT-BID [facility] Last Admin: 07/01/21 08:17 Dose: 1 mg Documented by: Calcium Carbonate (Calcium Carb-Vit D 500 Mg-5 Mcg Tab) 1 each PO DAILY [facility] Last Admin: 07/01/21 09:30 Dose: 1 each Documented by: Digoxin (Digoxin 125 Mcg Tab) 125 mcg PO DAILY [facility] Last Admin: 07/01/21 09:30 Dose: 125 mcg Documented by: Dorzolamide HCl (Dorzolamide Hcl 2% Drops 10 Ml Btl) 2 drops BOTH EYES BID [facility] Last Admin: 07/01/21 11:39 Dose: Not Given Documented by: Enoxaparin Sodium (Enoxaparin 80 Mg/0.8 Ml Syringe) 70 mg SQ BID [facility] Last Admin: 07/01/21 09:29 Dose: 70 mg Documented by: Formoterol Fumarate (Formoterol Fumarate 20 Mcg/2 Ml Nebu) 20 mcg INHALATION RT-BID [facility] Last Admin: 07/01/21 08:17 Dose: 20 mcg Documented by: Hydralazine HCl (Hydralazine Hcl 25 Mg Tab) 25 mg PO BID [facility] Last Admin: 07/01/21 09:30 Dose: 25 mg Documented by: Levofloxacin 500 mg/ IV (Solution) 100 mls @ 100 mls/hr IVPB Q48H [facility] Sodium Chloride (Saline 0.9%) 1,000 mls @ 100 mls/hr IV .Q10H [facility] Last Admin: 06/30/21 23:12 Dose: Not Given Documented by: Insulin Aspart (Insulin Aspart (Novolog) 100 Unit/Ml Vial) 0 unit SQ [facility]; Protocol Last Admin: 07/01/21 12:09 Dose: Not Given Documented by: Insulin Detemir (Insulin Detemir (Levemir) 100 Unit/Ml Syr) 14 unit SQ [facility] Last Admin: 06/30/21 20:44 Dose: Not Given Documented by: Latanoprost (Latanoprost 0.005% Ophth Drops 2.5 Ml Btl) 1 drops BOTH EYES [facility] Last Admin: 06/30/21 23:12 Dose: Not Given Documented by: Levothyroxine Sodium (Levothyroxine 75 Mcg Tab) 75 mcg PO DAILY@0630 [facility] Last Admin: 07/01/21 06:15 Dose: 75 mcg Documented by: Losartan Potassium (Losartan 50 Mg Tab) 50 mg PO HS [facility] Last Admin: 06/30/21 20:46 Dose: Not Given Documented by: Methylprednisolone Sodium Succinate (Methylprednisolone Sod Succi 40 Mg/Ml 1 Ml Vial) 40 mg IV Q12H [facility] Miscellaneous Information (Warfarin Per Pharmacy) 1 each MISCELLANE DIRECTED PRN; Protocol PRN Reason: Per Protocol Montelukast Sodium (Montelukast 10 Mg Tab) 10 mg PO DAILY [facility] Last Admin: 07/01/21 09:30 Dose: 10 mg Documented by: Pantoprazole Sodium (Pantoprazole 40 Mg Tablet) 40 mg PO DAILY [facility] Last Admin: 07/01/21 09:30 Dose: 40 mg Documented by: Paroxetine HCl (Paroxetine 10 Mg Tab) 5 mg PO DAILY [facility] Last Admin: 07/01/21 09:30 Dose: 5 mg Documented by: Potassium Chloride (Potassium Chloride Er 10 Meq Tab.Er.Prt) 10 meq PO QAM [facility] Last Admin: 07/01/21 09:30 Dose: 10 meq Documented by: Spironolactone (Spironolactone 25 Mg Tab) 25 mg PO DAILY [facility] Last Admin: 07/01/21 09:29 Dose: 25 mg Documented by: Temazepam (Temazepam 15 Mg Cap) 15 mg PO HS [facility] Last Admin: 06/30/21 20:44 Dose: 15 mg Documented by: Warfarin Sodium (Warfarin 5 Mg Tab) 5 mg PO HS [facility]; Protocol Last Admin: 06/30/21 21:29 Dose: 5 mg Documented by: Warfarin Sodium (Warfarin 0.5 Mg Tab) 0.5 mg PO HS [facility]; Protocol Last Admin: 06/30/21 21:30 Dose: Not Given Documented by: Zolpidem Tartrate (Zolpidem 5 Mg Tab) 2.5 mg PO HS PRN PRN Reason: Insomnia Past medical history to include: Atrial fibrillation, COPD, CHF, GERD, hypertension, hypothyroid, varicose veins, home oxygen 2 L at night Social history: Lives alone. Smoked a pack a day for 20 years stopped in 1977. Family history: Adopted Physical examination: VITAL SIGNS: 97.9, 60, 18, 125-68, 100% on 2 L GENERAL: Sitting up in a chair, awake, breathing stable EYES: Pupils equal. Conjunctiva normal. HEENT: External appearance of nose and ears normal, oral cavity grossly normal. NECK: JVD not raised; masses not palpable. HEART: Irregular heart sounds; no edema. LUNGS: Respiratory rate increased; decreased breaths sounds ABDOMEN: Soft, nontender, liver spleen not palpable, no masses palpable. PSYCH: Alert and oriented x3; mood and affect normal MUSCULAR skeletal: Evidence of OA. INVESTIGATIONS, reviewed in the clinical context: July 01: INR 1 potassium 4.7 sodium 131 BUN 64 creatinine 1.88 UA: Negative Renal ultrasound: Showing renal cyst. WBC 8.1 hemoglobin 9.8 platelets 105 lymphocytes 0.4 sodium 126 potassium 4.9 BUN 61 creatinine 2.03 Pro-calcitonin 30.9 EKG tracing personally reviewed by me-atrial fibrillation with some ST segment changes. VQ scan: Intermediate probably for PE. 2-D echocardiogram: EF 55-60%. Moderate aortic stenosis. Mechanical mitral valve. Severe tricuspid regurgitation. Moderate pulmonary hypertension. Chest x-ray film personally reviewed by me-right upper lobe infiltrate and possible right basilar infiltrate/effusion Assessment and plan: -Suspect right-sided pneumonia. Gram-negative organism possibly. Patient presents with chills and 4 days of increasing shortness of breath. IV Levaquin -Acute COPD exacerbation in an ex-smoker: Improving DuoNeb. Changed to inhaled Pulmicort and Perforomist. IV Solu-Medrol 40 mg every 12. -Hyponatremia from decreased solute intake Encourage oral intake. Increase IV fluids to 100 mL an hour. -Severe tricuspid regurgitation Follow clinically -Secondary moderate pulmonary hypertension from COPD Follow clinically -Hypothyroid Synthroid 75 g a day -Essential hypertension with CK D. Currently blood pressure running on the lower side. Continue atenolol 50 mg day. Cozaar decreased to 50 mg a day -Possible CKD. Cannot rule out acute component. Ultrasound showing renal cyst.. UA: Unremarkable. Hold Lasix for now. Follow renal function closely. IV fluids -Anxiety not otherwise specified Paxil 20 mg daily -Pacemaker for sick sinus syndrome Telemetry -Mechanical mitral valve Follow INR. Lovenox 70 mg subcu every 12 hours until INR therapeutic. Decrease Solu-Medrol to 40 mg every 12. Increase IV fluids 100 mL an hour. Repeat labs. Discussed with the patient.
--- NOTE | 2021-07-01 12:58 | P.PN ---
Subjective Progress Note Date: 07/01/21 Principal diagnosis: Acute hypoxic respiratory failure, COPD exacerbation, CHF, and possible pneumonia This is an 85-year-old female with a history of multiple medical problems in cluding atrial fibrillation, COPD, CHF, gastroesophageal reflux disease, hypertension, and hypothyroidism, who presents to the emergency department at [facility] in [place]. The patient was transferred down here to be evaluated. She was initially seen by the ER physician. She is a very poor historian but apparently her son noticed that she was having some difficulty in breathing, and she was shaking. She hadn't been feeling well for a couple days prior to admission. The patient apparently stopped her Coumadin a couple days ago, because she was going to have a tooth extracted today. A ventilation perfusion scan was ordered, and was indeterminate. Currently, she is on 2 L, nasal cannula. She's getting an IV at KVO, and IV Levaquin. She looks very comfortable, and is feeling much improved. Her primary physician in that area is Dr. Eboni Chaney. Labs and x-rays are ordered but are not yet back. The perfusion lung scan was determined to be intermediate probability for pulmonary embolism. Echocardiogram was ordered but not yet interpreted. On 07/01/2021 patient seen in follow-up on selective care unit, she is sitting up in the chair, she looks very comfortable, no dyspnea, only occasional cough, mild congestion, no phlegm production, she is currently off the oxygen, she is breathing comfortably, no complaints of chest discomfort, she is on point and was seen at a rate of 50 ML per hour. She is on Levaquin for possibility of underlying pneumonia, her pro-calcitonin level came back at 30.9, supporting possibility of underlying bacterial pneumonia. Does not appear to be fluid overloaded, and despite elevated proBNP patient's oxygenation seems to be stable, and she does not appear to be in acute exacerbation of CHF clinically. She was given IV fluids, and her renal function is improved on today's labs, BUN is 64 and creatinine is down to 1.8. Serum sodium is improved and is at 131, the rest of electrolytes were within normal limits. Objective - Vital Signs Vital signs: Vital Signs Temp 97.9 F 07/01/21 08:00 Pulse 65 07/01/21 11:49 Resp 18 07/01/21 08:38 BP 125/68 07/01/21 08:00 Pulse Ox 100 07/01/21 08:17 Intake & Output 06/30/21 07/01/21 07/01/21 18:59 06:59 18:59 Intake Total 240 690 120 Balance 240 690 120 Weight 68.039 kg 68.4 kg 68.4 kg Intake: Intake, IV Titration 450 Amount Sodium Chloride 0.9% 1, 450 000 ml @ 50 mls/hr IV . Q20H [facility] Rx#:[id number] Oral 240 240 120 Other: # Voids 2 2 1 # Bowel Movements 0 - Exam GENERAL EXAM: Alert, very pleasant, 85-year-old white female, on room air comfortable in no apparent distress. HEAD: Normocephalic/atraumatic. EYES: Normal reaction of pupils, equal size. Conjunctiva pink, sclera white. NOSE: Clear with pink turbinates. THROAT: No erythema or exudates. NECK: No masses, no JVD, no thyroid enlargement, no adenopathy. CHEST: No chest wall deformity. Symmetrical expansion. LUNGS: Equal air entry with no crackles, wheeze, rhonchi or dullness. CVS: Regular rate and rhythm, normal S1 and S2, no gallops, very loud systolic murmur throughout the precordium, no rubs ABDOMEN: Soft, nontender. No hepatosplenomegaly, normal bowel sounds, no guarding or rigidity. EXTREMITIES: No clubbing, no edema, no cyanosis, 2+ pulses and upper and lower extremities. MUSCULOSKELETAL: Muscle strength and tone normal. SPINE: No scoliosis or deformity SKIN: No rashes CENTRAL NERVOUS SYSTEM: Alert and oriented -3. No focal deficits, tone is normal in all 4 extremities. PSYCHIATRIC: Alert and oriented -3. Appropriate affect. Intact judgment and insight. - Labs CBC & Chem 7: 06/30/21 10:42 07/01/21 06:57 Labs: Abnormal Lab Results - Last 24 Hours (Table) 06/30/21 06/30/21 07/01/21 Range/Units 10:42 20:35 06:12 Sodium (137-145) mmol/L BUN (7-17) mg/dL Creatinine (0.52-1.04) mg/dL Glucose (74-99) mg/dL POC Glucose (mg/dL) 132 H 140 H (75-99) mg/dL Procalcitonin 30.90 H (0.02-0.09) ng/mL 07/01/21 07/01/21 Range/Units 06:57 11:50 Sodium 131 L (137-145) mmol/L BUN 64 H (7-17) mg/dL Creatinine 1.88 H (0.52-1.04) mg/dL Glucose 144 H (74-99) mg/dL POC Glucose (mg/dL) 117 H (75-99) mg/dL Procalcitonin (0.02-0.09) ng/mL Assessment and Plan Plan: Assessment: #1. Acute hypoxic respiratory failure, multifactorial, related to acute exacerbation of COPD, and underlying pneumonia based on elevated protein S level. Possibility of acute exacerbation of CHF is also considered an elevated proBNP at 16,000. However clinically patient seems to be euvolemic #2. History of chronic atrial fibrillation, chronically on Coumadin, which was recently stopped for a dental extraction, currently patient is back on Coumadin, and subcu Lovenox for bridge #3. Status post pacemaker insertion #4. History of mitral valve replacement in 1999 #5. Hypertension #6. Hypothyroidism #7. Nonsmoker Plan: Continue antibiotics Vital signs are stable, patient is on room air, no fever or chills Renal function is improving Diuretics remain on hold Continue nebulized bronchodilators Send urine culture Continue IV steroids Follow-up chest chest x-ray in the morning Continue to follow I performed a history & physical examination of the patient and discussed their management with my nurse practitioner, Janina Clarke. I reviewed the nurse practitioner's note and agree with the documented findings and plan of care. Lung sounds are positive for bibasilar rales throughout the lung epperson. The findings and the impression was discussed with the patient. I attest to the d ocumentation by the nurse practitioner. Time with Patient: Less than 30
[2021-07-01] MEDS: SODIUM CHLORIDE 0.9% 1,000 ML IV SCH (16:26)
[2021-07-01 16:58] LABS: Glucose,Whole Blood 143 mg/dL (75-99)
[2021-07-01 20:30] LABS: Glucose,Whole Blood 189 mg/dL (75-99)
[2021-07-01] MEDS: INSULIN DETEMIR (LEVEMIR) 100 UNIT/ML SYR SQ SCH (21:01)
[2021-07-01] MEDS: WARFARIN 0.5 MG TAB PO SCH (21:06)
[2021-07-01] MEDS: LOSARTAN 50 MG TAB PO SCH (21:07)
[2021-07-01] MEDS: WARFARIN 5 MG TAB PO SCH (21:08)
[2021-07-01] MEDS: TEMAZEPAM 15 MG CAP PO SCH (21:17)
[2021-07-01] MEDS: LATANOPROST 0.005% OPHTH DROPS 2.5 ML BTL BOTH EYES SCH (21:17)
[2021-07-02] MEDS: SODIUM CHLORIDE 0.9% 1,000 ML IV SCH ×2 (02:16→16:01)
[2021-07-02 06:11] LABS: Glucose,Whole Blood 128 mg/dL (75-99)
[2021-07-02] MEDS: INSULIN ASPART (NovoLOG) 100 UNIT/ML VIAL SQ SCH ×4 (06:19→20:50)
[2021-07-02] MEDS: LEVOTHYROXINE 75 MCG TAB PO SCH (06:25)
[2021-07-02] MEDS: atenoloL 50 MG TAB PO SCH (08:06)
[2021-07-02] MEDS: MONTELUKAST 10 MG TAB PO SCH (08:06)
[2021-07-02] MEDS: PANTOPRAZOLE 40 MG TABLET PO SCH (08:06)
[2021-07-02] MEDS: DIGOXIN 125 MCG TAB PO SCH (08:06)
[2021-07-02] MEDS: ENOXAPARIN 80 MG/0.8 ML SYRINGE SQ SCH ×2 (08:06→23:24)
[2021-07-02] MEDS: POTASSIUM CHLORIDE ER 10 MEQ TAB.ER.PRT PO SCH (08:06)
[2021-07-02] MEDS: hydrALAZINE HCL 25 MG TAB PO SCH ×2 (08:06→20:57)
[2021-07-02] MEDS: CALCIUM CARB-VIT D 500 MG-5 MCG TAB PO SCH (08:06)
[2021-07-02] MEDS: PARoxetine 10 MG TAB PO SCH (08:07)
[2021-07-02] MEDS: methylPREDNISolone SOD SUCCI 40 MG/ML 1 ML VIAL IV SCH ×2 (08:07→20:57)
[2021-07-02] MEDS: BUDESONIDE 1 MG/2 ML NEBU INHALATION SCH ×2 (08:19→20:09)
[2021-07-02] MEDS: FORMOTEROL FUMARATE 20 MCG/2 ML NEBU INHALATION SCH ×2 (08:19→20:09)
[2021-07-02] MEDS: IPRATROPIUM-ALBUTEROL 3 ML NEB INHALATION SCH ×4 (08:19→20:09)
[2021-07-02 08:58] LABS: INR 1.1 (<1.2); Prothrombin Time 11.8 sec (9.0-12.0)
[2021-07-02] MEDS ORDERED: LEVOFLOXACIN 500MG-D5W PMX 500 MG in DEXTROSE/WATER 1 100ML.BAG IVPB SCH (09:00)
[2021-07-02 09:08] LABS: Potassium 4.9 mmol/L (3.5-5.1)
[2021-07-02] MEDS: DORZOLAMIDE HCL 2% DROPS 10 ML BTL BOTH EYES SCH ×2 (10:59→21:06)
[2021-07-02 11:31] LABS: Glucose,Whole Blood 171 mg/dL (75-99)
[2021-07-02] MEDS: ASPIRIN 81 MG PO SCH (12:53)
--- NOTE | 2021-07-02 13:02 | XR ---
EXAMINATION TYPE: XR chest 1V portable DATE OF EXAM: 07/02/2021 Comparison: 06/30/2021 Clinical History: 85-year-old female shortness of breath, dyspnea Findings: Median sternotomy wires are present with post-CABG clips in the mediastinum. Left anterior chest wall pacemaker generator with a single right ventricular lead. Right heart margin remains obscured by adj acent pleural parenchymal opacity. Small to moderate right pleural effusion with adjacent opacity is similar to slightly decreased. Mild hyperinflation. Either some atelectasis or fluid thickening the r ight minor fissure. Impression: Suspect underlying COPD. Continued small to moderate right pleural effusion with adjacent atelectasis and/or consolidation similar to slightly decreased.
--- NOTE | 2021-07-02 13:43 | P.PN ---
Subjective Progress Note Date: 07/02/21 Principal diagnosis: Acute hypoxic respiratory failure, COPD exacerbation, CHF, and possible pneumonia This is an 85-year-old female with a history of multiple medical problems in cluding atrial fibrillation, COPD, CHF, gastroesophageal reflux disease, hypertension, and hypothyroidism, who presents to the emergency department at [facility] in [place]. The patient was transferred down here to be evaluated. She was initially seen by the ER physician. She is a very poor historian but apparently her son noticed that she was having some difficulty in breathing, and she was shaking. She hadn't been feeling well for a couple days prior to admission. The patient apparently stopped her Coumadin a couple days ago, because she was going to have a tooth extracted today. A ventilation perfusion scan was ordered, and was indeterminate. Currently, she is on 2 L, nasal cannula. She's getting an IV at [facility], and IV Levaquin. She looks very comfortable, and is feeling much improved. Her primary physician in that area is Dr. Eboni Chaney. Labs and x-rays are ordered but are not yet back. The perfusion lung scan was determined to be intermediate probability for pulmonary embolism. Echocardiogram was ordered but not yet interpreted. On 07/01/2021 patient seen in follow-up on selective care unit, she is sitting up in the chair, she looks very comfortable, no dyspnea, only occasional cough, mild congestion, no phlegm production, she is currently off the oxygen, she is breathing comfortably, no complaints of chest discomfort, she is on point and was seen at a rate of 50 ML per hour. She is on Levaquin for possibility of underlying pneumonia, her pro-calcitonin level came back at 30.9, supporting possibility of underlying bacterial pneumonia. Does not appear to be fluid overloaded, and despite elevated proBNP patient's oxygenation seems to be stable, and she does not appear to be in acute exacerbation of CHF clinically. She was given IV fluids, and her renal function is improved on today's labs, BUN is 64 and creatinine is down to 1.8. Serum sodium is improved and is at 131, the rest of electrolytes were within normal limits. On 07/02/2021 patient seen in follow-up on selective care unit, she is a bit more dyspneic on today's exam, she was placed on supplemental oxygen, although she is not requiring very much oxygen, she sat 100% on 2 L. She states she does have increased exertional dyspnea. She has been off her Lasix since admission, she was actually given fluids related to acute kidney injury, she does have history of mechanical mitral valve replacement, and she does have moderately severe aortic stenosis. Her blood cultures from [facility] showed gram- positive cocci in chains, final culture is pending, currently patient is on Levaquin for empiric antibiotic coverage, she has had no fever or chills, mildly congestive cough, no phlegm production. Repeat chest x-ray is pending for today. Today's labs have been reviewed, sodium is 133, potassium is 4.9, chloride is 105, CO2 is 22, BUN is 56, creatinine is 1.68, renal profile is improving, her INR today is 1.1, and patient is on therapeutic dose Lovenox 70 mg twice daily, and on the Coumadin Objective - Vital Signs Vital signs: Vital Signs Temp 97.9 F 07/02/21 11:41 Pulse 65 07/02/21 11:51 Resp 18 07/02/21 13:14 BP 147/62 07/02/21 11:41 Pulse Ox 100 07/02/21 11:41 Intake & Output 07/01/21 07/02/21 07/02/21 18:59 06:59 18:59 Intake Total 600 118 Output Total 700 400 Balance 600 -700 -282 Weight 68.4 kg 71.8 kg Intake: Oral 600 118 Output: Urine 700 400 Other: # Voids 1 # Bowel Movements 0 - Exam GENERAL EXAM: Alert, very pleasant, 85-year-old white female, mildly short of breath with exertion, currently on 2 L of oxygen pulse ox of 100% on room air comfortable in no apparent distress. HEAD: Normocephalic/atraumatic. EYES: Normal reaction of pupils, equal size. Conjunctiva pink, sclera white. NOSE: Clear with pink turbinates. THROAT: No erythema or exudates. NECK: No masses, no JVD, no thyroid enlargement, no adenopathy. CHEST: No chest wall deformity. Symmetrical expansion. LUNGS: Equal air entry with basilar crackles, diminished breath sounds at right base CVS: Regular rate and rhythm, normal S1 and S2, no gallops, very loud systolic murmur throughout the precordium, no rubs ABDOMEN: Soft, nontender. No hepatosplenomegaly, normal bowel sounds, no guarding or rigidity. EXTREMITIES: No clubbing, no edema, no cyanosis, 2+ pulses and upper and lower extremities. MUSCULOSKELETAL: Muscle strength and tone normal. SPINE: No scoliosis or deformity SKIN: No rashes CENTRAL NERVOUS SYSTEM: Alert and oriented -3. No focal deficits, tone is norm al in all 4 extremities. PSYCHIATRIC: Alert and oriented -3. Appropriate affect. Intact judgment and insight. - Labs CBC & Chem 7: 06/30/21 10:42 07/02/21 07:27 Labs: Abnormal Lab Results - Last 24 Hours (Table) 07/01/21 07/01/21 07/02/21 Range/Units 16:56 20:28 06:09 Sodium (137-145) mmol/L BUN (7-17) mg/dL Creatinine (0.52-1.04) mg/dL Glucose (74-99) mg/dL POC Glucose (mg/dL) 143 H 189 H 128 H (75-99) mg/dL Procalcitonin (0.02-0.09) ng/mL 07/02/21 07/02/21 07/02/21 Range/Units 07:27 07:27 11:29 Sodium 133 L (137-145) mmol/L BUN 56 H (7-17) mg/dL Creatinine 1.68 H (0.52-1.04) mg/dL Glucose 116 H (74-99) mg/dL POC Glucose (mg/dL) 171 H (75-99) mg/dL Procalcitonin 14.60 H (0.02-0.09) ng/mL Assessment and Plan Plan: Assessment: #1. Acute hypoxic respiratory failure, multifactorial, related to acute exacerbation of COPD, and underlying pneumonia based on procalcitonin. Possibility of acute exacerbation of CHF is also considered an elevated proBNP at 16,000. However clinically patient seems to be euvolemic #2. Right-sided pleural effusion, with the possibility of parapneumonic pleural effusion. We will obtain ultrasound of the chest #3. Gram-positive bacteremia, blood cultures drawn at [facility] showed gram-positive cocci in chains, possible strep pneumonia, awaiting final culture. Currently on Levaquin #4. History of chronic atrial fibrillation, chronically on Coumadin, which was recently stopped for a dental extraction, currently patient is back on Coumadin, and subcu Lovenox for bridge #5. Status post pacemaker insertion #6. History of mitral valve replacement in 1999 #7. Hypertension #8. Hypothyroidism #9. Nonsmoker Plan: Chest x-ray has been reviewed Obtain ultrasound of the chest to see if there is a sizable pleural effusion pocket on the right for drainage Continue current antibiotics Obtain follow-up blood cultures We'll consider right-sided thoracentesis if ultrasound the chest shows a sizable pleural effusion Will continue current medical treatment I performed a history & physical examination of the patient and discussed their management with my nurse practitioner, Janina Clarke. I reviewed the nurse practitioner's note and agree with the documented findings and plan of care. Lung sounds are positive for bibasilar rales throughout the lung epperson. The findings and the impression was discussed with the patient. I attest to the documentation by the nurse practitioner. Time with Patient: Less than 30
--- NOTE | 2021-07-02 14:45 | US ---
EXAMINATION TYPE: US chest DATE OF EXAM: 07/02/2021 COMPARISON: chest x-ray 07/02/2021 CLINICAL HISTORY: dyspnea. TECHNIQUE: Targeted ultrasound of the posterior bilateral hemithoraces EXAM MEASUREMENTS: Right Pleural Effusion pocket size: 7.1cmA/P Right skin surface to fluid distance: 2.1 cm A/P Left Pleural Effusion pocket size: 1.9 cm A/P Right side was marked for possible thoracentesis outside the dept. Left side was not marked for possible thoracentesis outside the dept. Pulmonologists are able to review the images in the patient?s EMR. IMPRESSIONS: Right pleural effusion greater than left
[2021-07-02 16:35] LABS: Glucose,Whole Blood 81 mg/dL (75-99)
[2021-07-02] MEDS ORDERED: WARFARIN 7.5 MG TAB PO ONE (18:00)
--- NOTE | 2021-07-02 20:13 | P.PN ---
Progress Note - Text Progress Note Date: 07/02/21 Chief Complaint: Short of breath This is a pleasant 85-year-old patient Dr. Eboni Chaney. Patient is transferred [facility]. Patient at the baseline uses 2 L of oxygen at night. Able to get from the house. Patient presents with worsening short of breath for last 4 days. No edema. No cough. She having chills. Decreased appetite. Patient been having 3 or 4 bowel movements a day. Soft. Patient is underlying atrial fibrillation rate controlled. Patient had her Coumadin discontinued 3 days ago for about towards intervention. Patient did test negative for influenza AB and COVID another hospital. Patient has some urinary symptoms. Admitted with right-sided pneumonia, COPD exacerbation, hyponatremia. Started on IV Levaquin. IV fluids for renal failure. Does off Cozaar cutback. IV Solu-Medrol. INR subtherapeutic. Started on Lovenox therapeutic dose. 07/01/2021: Feeling better. Sitting up on a chair. Decreased wheezing. Eating better. Renal function some improvement. IV fluids increased 200 mL an hour. IV Solu-Medrol cutback to every 12. 07/02/2021: Sitting up in a chair. A bit tired. Does not like hospital food. Son is visiting. Did walk in the hallway with assistance. Breathing better. Review of systems: Was done for constitutional, cardiovascular, GI, pulmonary. relevant finding as above Active Medications Albuterol/Ipratropium (Ipratropium-Albuterol 3 Ml Neb) 3 ml INHALATION RT-QID [facility] Last Admin: 07/02/21 15:48 Dose: 3 ml Documented by: Aspirin (Aspirin 81 Mg) 81 mg PO MOWEFR [facility] Last Admin: 07/02/21 12:53 Dose: Not Given Documented by: Atenolol (Atenolol 50 Mg Tab) 50 mg PO DAILY [facility] Last Admin: 07/02/21 08:06 Dose: 50 mg Documented by: Budesonide (Budesonide 1 Mg/2 Ml Nebu) 1 mg INHALATION RT-BID [facility] Last Admin: 07/02/21 08:19 Dose: 1 mg Documented by: Calcium Carbonate (Calcium Carb-Vit D 500 Mg-5 Mcg Tab) 1 each PO DAILY [facility] Last Admin: 07/02/21 08:06 Dose: 1 each Documented by: Digoxin (Digoxin 125 Mcg Tab) 125 mcg PO DAILY [facility] Last Admin: 07/02/21 08:06 Dose: 125 mcg Documented by: Dorzolamide HCl (Dorzolamide Hcl 2% Drops 10 Ml Btl) 2 drops BOTH EYES BID [facility] Last Admin: 07/02/21 10:59 Dose: Not Given Documented by: Enoxaparin Sodium (Enoxaparin 80 Mg/0.8 Ml Syringe) 70 mg SQ BID [facility] Last Admin: 07/02/21 08:06 Dose: 70 mg Documented by: Formoterol Fumarate (Formoterol Fumarate 20 Mcg/2 Ml Nebu) 20 mcg INHALATION RT-BID [facility] Last Admin: 07/02/21 08:19 Dose: 20 mcg Documented by: Hydralazine HCl (Hydralazine Hcl 25 Mg Tab) 25 mg PO BID [facility] Last Admin: 07/02/21 08:06 Dose: 25 mg Documented by: Levofloxacin 500 mg/ IV (Solution) 100 mls @ 100 mls/hr IVPB Q48H [facility] Last Admin: 07/02/21 08:09 Dose: 100 mls/hr Documented by: Insulin Aspart (Insulin Aspart (Novolog) 100 Unit/Ml Vial) 0 unit SQ [facility]; Protocol Last Admin: 07/02/21 16:36 Dose: Not Given Documented by: Insulin Detemir (Insulin Detemir (Levemir) 100 Unit/Ml Syr) 14 unit SQ [facility] Last Admin: 07/01/21 21:01 Dose: Not Given Documented by: Latanoprost (Latanoprost 0.005% Ophth Drops 2.5 Ml Btl) 1 drops BOTH EYES [facility] Last Admin: 07/01/21 21:17 Dose: Not Given Documented by: Levothyroxine Sodium (Levothyroxine 75 Mcg Tab) 75 mcg PO DAILY@0630 [facility] Last Admin: 07/02/21 06:25 Dose: 75 mcg Documented by: Losartan Potassium (Losartan 50 Mg Tab) 50 mg PO [facility] Last Admin: 07/01/21 21:07 Dose: 50 mg Documented by: Methylprednisolone Sodium Succinate (Methylprednisolone Sod Succi 40 Mg/Ml 1 Ml Vial) 40 mg IV Q12H [facility] Last Admin: 07/02/21 08:07 Dose: 40 mg Documented by: Miscellaneous Information (Warfarin Per Pharmacy) 1 each MISCELLANE DIRECTED PRN; Protocol PRN Reason: Per Protocol Montelukast Sodium (Montelukast 10 Mg Tab) 10 mg PO DAILY [facility] Last Admin: 07/02/21 08:06 Dose: 10 mg Documented by: Pantoprazole Sodium (Pantoprazole 40 Mg Tablet) 40 mg PO DAILY [facility] Last Admin: 07/02/21 08:06 Dose: 40 mg Documented by: Paroxetine HCl (Paroxetine 10 Mg Tab) 5 mg PO DAILY [facility] Last Admin: 07/02/21 08:07 Dose: 5 mg Documented by: Potassium Chloride (Potassium Chloride Er 10 Meq Tab.Er.Prt) 10 meq PO QAM [facility] Last Admin: 07/02/21 08:06 Dose: 10 meq Documented by: Temazepam (Temazepam 15 Mg Cap) 15 mg PO HS [facility] Last Admin: 07/01/21 21:17 Dose: Not Given Documented by: Zolpidem Tartrate (Zolpidem 5 Mg Tab) 2.5 mg PO HS PRN PRN Reason: Insomnia Last Admin: 07/01/21 21:07 Dose: 2.5 mg Documented by: Past medical history to include: Atrial fibrillation, COPD, CHF, GERD, hypertension, hypothyroid, varicose veins, home oxygen 2 L at night Social history: Lives alone. Smoked a pack a day for 20 years stopped in 1977. Family history: Adopted Physical examination: VITAL SIGNS: 97.9, 16, 18, 147 with 62, 100% on 2 L GENERAL: Sitting up in a chair, awake, breathing stable EYES: Pupils equal. Conjunctiva normal. HEENT: External appearance of nose and ears normal, oral cavity grossly normal. NECK: JVD not raised; masses not palpable. HEART: Irregular heart sounds; no edema. LUNGS: Respiratory rate increased; decreased breaths sounds ABDOMEN: Soft, nontender, liver spleen not palpable, no masses palpable. PSYCH: Alert and oriented x3; mood and affect normal MUSCULAR skeletal: Evidence of OA. INVESTIGATIONS, reviewed in the clinical context: July 02: Sodium 133 potassium 4.9 BUN 56 creatinine 1.68 procalcitonin 40.6 INR 1.1 July 01: INR 1 potassium 4.7 sodium 131 BUN 64 creatinine 1.88 UA: Negative Renal ultrasound: Showing renal cyst. WBC 8.1 hemoglobin 9.8 platelets 105 lymphocytes 0.4 sodium 126 potassium 4.9 BUN 61 creatinine 2.03 Pro-calcitonin 30.9 EKG tracing personally reviewed by me-atrial fibrillation with some ST segment changes. VQ scan: Intermediate probably for PE. 2-D echocardiogram: EF 55-60%. Moderate aortic stenosis. Mechanical mitral valve. Severe tricuspid regurgitation. Moderate pulmonary hypertension. Chest x-ray film personally reviewed by me-right upper lobe infiltrate and possible right basilar infiltrate/effusion Assessment and plan: -right-sided pneumonia. Gram-negative organism possibly. Patient presents with chills and 4 days of increasing shortness of breath. IV Levaquin -Acute COPD exacerbation in an ex-smoker: Improving DuoNeb. Changed to inhaled Pulmicort and Perforomist. IV Solu-Medrol 40 mg every 12. -Hyponatremia from decreased solute intake: Improving Encourage oral intake. Received IV fluids. -Severe tricuspid regurgitation Follow clinically -Secondary moderate pulmonary hypertension from COPD Follow clinically -Acute kidney injury, possibly prerenal/ATN.: Slow to respond Admission creatinine 2.03. Today 1.68. Gentle hydration overnight. -Hypothyroid Synthroid 75 g a day -Essential hypertension with CK D. Currently blood pressure running on the lower side. Continue atenolol 50 mg day. Cozaar decreased to 50 mg a day -Possible CKD. Cannot rule out acute component. Ultrasound showing renal cyst.. UA: Unremarkable. Hold Lasix for now. Follow renal function closely. IV fluids -Anxiety not otherwise specified Paxil 20 mg daily -Pacemaker for sick sinus syndrome Telemetry -Mechanical mitral valve Follow INR. Lovenox 70 mg subcu every 12 hours until INR therapeutic. Continue bronchodilators, IV Solu-Medrol. Subcu Lovenox. INR subtherapeutic. Follow renal function. Increase activity as tolerated. Discussed with the patient and son.
[2021-07-02] MEDS ORDERED: SODIUM CHLORIDE 0.9% 1,000 ML IV SCH (20:15)
[2021-07-02 20:26] LABS: Glucose,Whole Blood 102 mg/dL (75-99)
[2021-07-02] MEDS: INSULIN DETEMIR (LEVEMIR) 100 UNIT/ML SYR SQ SCH (20:50)
[2021-07-02] MEDS: LATANOPROST 0.005% OPHTH DROPS 2.5 ML BTL BOTH EYES SCH (20:57)
[2021-07-02] MEDS: LOSARTAN 50 MG TAB PO SCH (20:57)
[2021-07-02] MEDS: TEMAZEPAM 15 MG CAP PO SCH (23:30)
[2021-07-03 06:07] LABS: Glucose,Whole Blood 100 mg/dL (75-99)
[2021-07-03] MEDS: LEVOTHYROXINE 75 MCG TAB PO SCH (06:23)
[2021-07-03] MEDS: INSULIN ASPART (NovoLOG) 100 UNIT/ML VIAL SQ SCH ×4 (06:23→21:10)
[2021-07-03] MEDS: FORMOTEROL FUMARATE 20 MCG/2 ML NEBU INHALATION SCH ×2 (07:58→20:48)
[2021-07-03] MEDS: BUDESONIDE 1 MG/2 ML NEBU INHALATION SCH ×2 (07:58→20:48)
[2021-07-03] MEDS: IPRATROPIUM-ALBUTEROL 3 ML NEB INHALATION SCH ×4 (07:58→20:48)
[2021-07-03] MEDS: methylPREDNISolone SOD SUCCI 40 MG/ML 1 ML VIAL IV SCH ×2 (08:04→20:55)
[2021-07-03] MEDS: hydrALAZINE HCL 25 MG TAB PO SCH ×2 (08:04→20:57)
[2021-07-03] MEDS: PANTOPRAZOLE 40 MG TABLET PO SCH (08:04)
[2021-07-03] MEDS: atenoloL 50 MG TAB PO SCH (08:04)
[2021-07-03] MEDS: POTASSIUM CHLORIDE ER 10 MEQ TAB.ER.PRT PO SCH (08:04)
[2021-07-03] MEDS: DIGOXIN 125 MCG TAB PO SCH (08:04)
[2021-07-03] MEDS: CALCIUM CARB-VIT D 500 MG-5 MCG TAB PO SCH (08:04)
[2021-07-03] MEDS: MONTELUKAST 10 MG TAB PO SCH (08:04)
[2021-07-03] MEDS: PARoxetine 10 MG TAB PO SCH (08:04)
[2021-07-03] MEDS: DORZOLAMIDE HCL 2% DROPS 10 ML BTL BOTH EYES SCH ×2 (08:07→21:05)
[2021-07-03 09:25] LABS: INR 1.6 (<1.2); Prothrombin Time 15.8 sec (9.0-12.0)
[2021-07-03 09:44] LABS: Calcium 9.1 mg/dL (8.4-10.2); Potassium 5.1 mmol/L (3.5-5.1)
[2021-07-03 10:14] LABS: Basophils # (A) 0.1 k/uL (0-0.2); Basophils % (A) 1 %; Eosinophils % (A) 0 %; HCT 32.9 % (34.0-46.0); HGB 10.8 gm/dL (11.4-16.0); Lymphocytes # (A) 0.5 k/uL (1.0-4.8); Lymphocytes % (A) 8 %; MCH 31.7 pg (25.0-35.0); MCHC 32.9 g/dL (31.0-37.0); MCV 96.3 fL (80.0-100.0); Monocytes # (A) 0.2 k/uL (0-1.0); Monocytes % (A) 4 %; Neutrophils # (A) 5.3 k/uL (1.3-7.7); Neutrophils % (A) 86 %; Platelet Count 152 k/uL (150-450); RBC 3.41 m/uL (3.80-5.40); RDW 15.1 % (11.5-15.5); WBC 6.2 k/uL (3.8-10.6)
[2021-07-03 12:00] LABS: Glucose,Whole Blood 91 mg/dL (75-99)
--- NOTE | 2021-07-03 12:51 | P.PN ---
Progress Note - Text Progress Note Date: 07/03/21 Chief Complaint: Short of breath This is a pleasant 85-year-old patient Dr. Eboni Chaney. [facility] Patient at the baseline uses 2 L of oxygen at night. Able to get from the house. Patient presents with worsening short of breath for last 4 days. No edema. No cough. She having chills. Decreased appetite. Patient been having 3 or 4 bowel movements a day. Soft. Patient is underlying atrial fibrillation rate controlled. Patient had her Coumadin discontinued 3 days ago for about towards intervention. Patient did test negative for influenza AB and COVID another hospital. Patient has some urinary symptoms. Admitted with right-sided pneumonia, COPD exacerbation, hyponatremia. Started on IV Levaquin. IV fluids for renal failure. Does off Cozaar cutback. IV Solu-Medrol. INR subtherapeutic. Started on Lovenox therapeutic dose. 07/01/2021: Feeling better. Sitting up on a chair. Decreased wheezing. Eating better. Renal function some improvement. IV fluids increased 200 mL an hour. IV Solu-Medrol cutback to every 12. 07/02/2021: Sitting up in a chair. A bit tired. Does not like hospital food. Son is visiting. Did walk in the hallway with assistance. Breathing better. 07/03/2021: Feeling better. Breathing better. His renal function slowly improving. She had a breakfast today. No edema. He received some fluids overnight. Ultrasound chest showing pleural effusion. Being followed by jean gee. Review of systems: Was done for constitutional, cardiovascular, GI, pulmonary. relevant finding as above Active Medications Albuterol/Ipratropium (Ipratropium-Albuterol 3 Ml Neb) 3 ml INHALATION RT-QID [facility] Last Admin: 07/03/21 11:14 Dose: 3 ml Documented by: Aspirin (Aspirin 81 Mg) 81 mg PO MOWEFR [facility] Last Admin: 07/02/21 12:53 Dose: Not Given Documented by: Atenolol (Atenolol 50 Mg Tab) 50 mg PO DAILY [facility] Last Admin: 07/03/21 08:04 Dose: 50 mg Documented by: Budesonide (Budesonide 1 Mg/2 Ml Nebu) 1 mg INHALATION RT-BID [facility] Last Admin: 07/03/21 07:58 Dose: 1 mg Documented by: Calcium Carbonate (Calcium Carb-Vit D 500 Mg-5 Mcg Tab) 1 each PO DAILY [facility] Last Admin: 07/03/21 08:04 Dose: 1 each Documented by: Digoxin (Digoxin 125 Mcg Tab) 125 mcg PO DAILY [facility] Last Admin: 07/03/21 08:04 Dose: 125 mcg Documented by: Dorzolamide HCl (Dorzolamide Hcl 2% Drops 10 Ml Btl) 2 drops BOTH EYES BID [facility] Last Admin: 07/03/21 08:07 Dose: Not Given Documented by: Formoterol Fumarate (Formoterol Fumarate 20 Mcg/2 Ml Nebu) 20 mcg INHALATION RT-BID [facility] Last Admin: 07/03/21 07:58 Dose: 20 mcg Documented by: Hydralazine HCl (Hydralazine Hcl 25 Mg Tab) 25 mg PO BID [facility] Last Admin: 07/03/21 08:04 Dose: 25 mg Documented by: Levofloxacin 500 mg/ IV (Solution) 100 mls @ 100 mls/hr IVPB Q48H [facility] Last Admin: 07/02/21 08:09 Dose: 100 mls/hr Documented by: Insulin Aspart (Insulin Aspart (Novolog) 100 Unit/Ml Vial) 0 unit SQ [facility]; Protocol Last Admin: 07/03/21 12:03 Dose: Not Given Documented by: Insulin Detemir (Insulin Detemir (Levemir) 100 Unit/Ml Syr) 14 unit SQ [facility] Last Admin: 07/02/21 20:50 Dose: Not Given Documented by: Latanoprost (Latanoprost 0.005% Ophth Drops 2.5 Ml Btl) 1 drops BOTH EYES [facility] Last Admin: 07/02/21 20:57 Dose: 1 drops Documented by: Levothyroxine Sodium (Levothyroxine 75 Mcg Tab) 75 mcg PO DAILY@0630 [facility] Last Admin: 07/03/21 06:23 Dose: 75 mcg Documented by: Losartan Potassium (Losartan 50 Mg Tab) 50 mg PO [facility] Last Admin: 07/02/21 20:57 Dose: 50 mg Documented by: Methylprednisolone Sodium Succinate (Methylprednisolone Sod Succi 40 Mg/Ml 1 Ml Vial) 40 mg IV Q12H [facility] Last Admin: 07/03/21 08:04 Dose: 40 mg Documented by: Miscellaneous Information (Warfarin Per Pharmacy) 1 each [facility] DIRECTED PRN; Protocol PRN Reason: Per Protocol Montelukast Sodium (Montelukast 10 Mg Tab) 10 mg PO DAILY [facility] Last Admin: 07/03/21 08:04 Dose: 10 mg Documented by: Pantoprazole Sodium (Pantoprazole 40 Mg Tablet) 40 mg PO DAILY [facility] Last Admin: 07/03/21 08:04 Dose: 40 mg Documented by: Paroxetine HCl (Paroxetine 10 Mg Tab) 5 mg PO DAILY [facility] Last Admin: 07/03/21 08:04 Dose: 5 mg Documented by: Potassium Chloride (Potassium Chloride Er 10 Meq Tab.Er.Prt) 10 meq PO QAM [facility] Last Admin: 07/03/21 08:04 Dose: 10 meq Documented by: Temazepam (Temazepam 15 Mg Cap) 15 mg PO HS [facility] Last Admin: 07/02/21 23:30 Dose: 15 mg Documented by: Warfarin Sodium (Warfarin 3 Mg Tab) 6 mg PO ONCE@1800 ONE Stop: 07/03/21 18:01 Zolpidem Tartrate (Zolpidem 5 Mg Tab) 2.5 mg PO HS PRN PRN Reason: Insomnia Last Admin: 07/01/21 21:07 Dose: 2.5 mg Documented by: Past medical history to include: Atrial fibrillation, COPD, CHF, GERD, hypertension, hypothyroid, varicose veins, home oxygen 2 L at night Social history: Lives alone. Smoked a pack a day for 20 years stopped in 1977. Family history: Adopted Physical examination: VITAL SIGNS: 97.9, 61, 18, 1 26 x 60, 100% on 2 L GENERAL: Sitting up in a chair, awake, comfortable EYES: Pupils equal. Conjunctiva normal. HEENT: External appearance of nose and ears normal, oral cavity grossly normal. NECK: JVD not raised; masses not palpable. HEART: Irregular heart sounds; no edema. LUNGS: Respiratory rate increased; decreased breaths sounds ABDOMEN: Soft, nontender, liver spleen not palpable, no masses palpable. PSYCH: Alert and oriented x3; mood and affect normal MUSCULAR skeletal: Evidence of OA. INVESTIGATIONS, reviewed in the clinical context: July 03: White count 6.2 hemoglobin 10.8 INR 1.6 potassium 5.1. 43 creatinine 1.51 July 02: Sodium 133 potassium 4.9 BUN 56 creatinine 1.68 procalcitonin 40.6 INR 1.1 July 01: INR 1 potassium 4.7 sodium 131 BUN 64 creatinine 1.88 UA: Negative Renal ultrasound: Showing renal cyst. WBC 8.1 hemoglobin 9.8 platelets 105 lymphocytes 0.4 sodium 126 potassium 4.9 BUN 61 creatinine 2.03 Pro-calcitonin 30.9 EKG tracing personally reviewed by me-atrial fibrillation with some ST segment changes. VQ scan: Intermediate probably for PE. 2-D echocardiogram: EF 55-60%. Moderate aortic stenosis. Mechanical mitral valve. Severe tricuspid regurgitation. Moderate pulmonary hypertension. Chest x-ray film personally reviewed by me-right upper lobe infiltrate and possible right basilar infiltrate/effusion Assessment and plan: -right-sided pneumonia. Gram-negative organism possibly. Patient presents with chills and 4 days of increasing shortness of breath.: Better IV Levaquin-changed to by mouth Levaquin -Acute COPD exacerbation in an ex-smoker: Improving DuoNeb. Changed to inhaled Pulmicort and Perforomist. IV Solu-Medrol 40 mg every 12. -Hyponatremia from decreased solute intake: Improving Encourage oral intake. Received IV fluids. -Severe tricuspid regurgitation Follow clinically -Secondary moderate pulmonary hypertension from COPD Follow clinically -Acute kidney injury, possibly prerenal/ATN.: Slow to respond Admission creatinine 2.03. Today 1.51 t. -Hypothyroid Synthroid 75 g a day -Essential hypertension with CK D. Currently blood pressure running on the lower side. Continue atenolol 50 mg day. Cozaar decreased to 50 mg a day -Possible CKD. Baseline creatinine unknown Ultrasound showing renal cyst.. UA: Unremarkable. Hold Lasix for now. Follow renal function closely. IV fluids -Anxiety not otherwise specified Paxil 20 mg daily -Pacemaker for sick sinus syndrome Telemetry -Mechanical mitral valve Follow INR. Lovenox 70 mg subcu every 12 hours until INR therapeutic. Continue bronchodilators, change IV Solu-Medrol to by mouth prednisone tomorrow.. Subcu Lovenox. INR subtherapeutic. Follow renal function. Activity as tolerated. Change Levaquin to by mouth. We will change to oral prednisone in the morning. Stop digoxin because of renal function. Stop Levemir
--- NOTE | 2021-07-03 14:40 | P.PN ---
Subjective Progress Note Date: 07/03/21 Principal diagnosis: Acute hypoxic respiratory failure, COPD exacerbation, CHF, and possible pneumonia This is an 85-year-old female with a history of multiple medical problems in cluding atrial fibrillation, COPD, CHF, gastroesophageal reflux disease, hypertension, and hypothyroidism, who presents to the emergency department at [facility] in [place]. The patient was transferred down here to be evaluated. She was initially seen by the ER physician. She is a very poor historian but apparently her son noticed that she was having some difficulty in breathing, and she was shaking. She hadn't been feeling well for a couple days prior to admission. The patient apparently stopped her Coumadin a couple days ago, because she was going to have a tooth extracted today. A ventilation perfusion scan was ordered, and was indeterminate. Currently, she is on 2 L, nasal cannula. She's getting an IV at KVO, and IV Levaquin. She looks very comfortable, and is feeling much improved. Her primary physician in that area is Dr. Eboni Chaney. Labs and x-rays are ordered but are not yet back. The perfusion lung scan was determined to be intermediate probability for pulmonary embolism. Echocardiogram was ordered but not yet interpreted. On 07/01/2021 patient seen in follow-up on selective care unit, she is sitting up in the chair, she looks very comfortable, no dyspnea, only occasional cough, mild congestion, no phlegm production, she is currently off the oxygen, she is breathing comfortably, no complaints of chest discomfort, she is on point and was seen at a rate of 50 ML per hour. She is on Levaquin for possibility of underlying pneumonia, her pro-calcitonin level came back at 30.9, supporting possibility of underlying bacterial pneumonia. Does not appear to be fluid overloaded, and despite elevated proBNP patient's oxygenation seems to be stable, and she does not appear to be in acute exacerbation of CHF clinically. She was given IV fluids, and her renal function is improved on today's labs, BUN is 64 and creatinine is down to 1.8. Serum sodium is improved and is at 131, the rest of electrolytes were within normal limits. On 07/02/2021 patient seen in follow-up on selective care unit, she is a bit more dyspneic on today's exam, she was placed on supplemental oxygen, although she is not requiring very much oxygen, she sat 100% on 2 L. She states she does have increased exertional dyspnea. She has been off her Lasix since admission, she was actually given fluids related to acute kidney injury, she does have history of mechanical mitral valve replacement, and she does have moderately severe aortic stenosis. Her blood cultures from [facility] showed gram- positive cocci in chains, final culture is pending, currently patient is on Levaquin for empiric antibiotic coverage, she has had no fever or chills, mildly congestive cough, no phlegm production. Repeat chest x-ray is pending for today. Today's labs have been reviewed, sodium is 133, potassium is 4.9, chloride is 105, CO2 is 22, BUN is 56, creatinine is 1.68, renal profile is improving, her INR today is 1.1, and patient is on therapeutic dose Lovenox 70 mg twice daily, and on the Coumadin On 07/03/2021 patient is seen in follow-up on selective care unit, she is on 2 L of oxygen and her pulse ox the 100%, she states she does have enlarged exer tional dyspnea, and she feels better on oxygen as she does desaturate with ambulation. No complaints of chest pain, only occasional cough, no phlegm production. Ultrasound of the chest that has been completed showing right pleural effusion pocket of 7.1 cm, and left pleural effusion pocket of 1.9 cm. Patient is on Levaquin for empiric antibiotic coverage, Lasix still remains on hold, she did receive 7.5 mg of Coumadin last night, her INR today is 1.6. This morning his Lovenox has been held for possibility right-sided thoracentesis. Today's labs have been reviewed showing low blood cell, 6.2, hemoglobin is 10.8, sodium is 135, the rest of electrolytes were within normal limits, renal profile continues to improve, BUN 43 creatinine is 1.5. Objective - Vital Signs Vital signs: Vital Signs Temp 97.9 F 07/03/21 12:09 Pulse 61 07/03/21 12:09 Resp 18 07/03/21 13:40 BP 126/60 07/03/21 12:09 Pulse Ox 100 07/03/21 12:09 Intake & Output 07/02/21 07/03/21 07/03/21 18:59 06:59 18:59 Intake Total 354 720 Output Total 450 500 Balance -96 -500 720 Weight 71.1 kg Intake: Oral 354 720 Output: Urine 450 500 Other: # Voids 1 - Exam GENERAL EXAM: Alert, very pleasant, 85-year-old white female, mildly short of breath with exertion, currently on 2 L of oxygen pulse ox of 100% on room air comfortable in no apparent distress. HEAD: Normocephalic/atraumatic. EYES: Normal reaction of pupils, equal size. Conjunctiva pink, sclera white. NOSE: Clear with pink turbinates. THROAT: No erythema or exudates. NECK: No masses, no JVD, no thyroid enlargement, no adenopathy. CHEST: No chest wall deformity. Symmetrical expansion. LUNGS: Equal air entry with basilar crackles, diminished breath sounds at right base CVS: Regular rate and rhythm, normal S1 and S2, no gallops, very loud systolic murmur throughout the precordium, no rubs ABDOMEN: Soft, nontender. No hepatosplenomegaly, normal bowel sounds, no guarding or rigidity. EXTREMITIES: No clubbing, no edema, no cyanosis, 2+ pulses and upper and lower extremities. MUSCULOSKELETAL: Muscle strength and tone normal. SPINE: No scoliosis or deformity SKIN: No rashes CENTRAL NERVOUS SYSTEM: Alert and oriented -3. No focal deficits, tone is normal in all 4 extremities. PSYCHIATRIC: Alert and oriented -3. Appropriate affect. Intact judgment and insight. - Labs CBC & Chem 7: 07/03/21 08:57 07/03/21 08:57 Labs: Abnormal Lab Results - Last 24 Hours (Table) 07/02/21 07/03/21 07/03/21 Range/Units 20:24 06:06 08:57 RBC (3.80-5.40) m/uL Hgb (11.4-16.0) gm/dL Hct (34.0-46.0) % Lymphocytes # (1.0-4.8) k/uL PT 15.8 H (9.0-12.0) sec INR 1.6 H (<1.2) Sodium (137-145) mmol/L BUN (7-17) mg/dL Creatinine (0.52-1.04) mg/dL Glucose (74-99) mg/dL POC Glucose (mg/dL) 102 H 100 H (75-99) mg/dL 07/03/21 07/03/21 Range/Units 08:57 08:57 RBC 3.41 L (3.80-5.40) m/uL Hgb 10.8 L (11.4-16.0) gm/dL Hct 32.9 L (34.0-46.0) % Lymphocytes # 0.5 L (1.0-4.8) k/uL PT (9.0-12.0) sec INR (<1.2) Sodium 135 L (137-145) mmol/L BUN 43 H (7-17) mg/dL Creatinine 1.51 H (0.52-1.04) mg/dL Glucose 133 H (74-99) mg/dL POC Glucose (mg/dL) (75-99) mg/dL Assessment and Plan Plan: Assessment: #1. Acute hypoxic respiratory failure, multifactorial, related to acute exacerbation of COPD, and underlying pneumonia based on procalcitonin. Possibility of acute exacerbation of CHF is also considered an elevated proBNP at 16,000. However clinically patient seems to be euvolemic #2. Right-sided pleural effusion, with the possibility of parapneumonic pleural effusion. US chest showed 7.1 cm pocket #3. Gram-positive bacteremia, blood cultures drawn at [facility] showed gram-positive cocci in chains, possible strep pneumonia, awaiting final culture. Currently on Levaquin #4. History of chronic atrial fibrillation, chronically on Coumadin, which was recently stopped for a dental extraction, currently patient is back on Coumadin, and subcu Lovenox for bridge #5. Status post pacemaker insertion #6. History of mitral valve replacement in 1999 #7. Hypertension #8. Hypothyroidism #9. Nonsmoker Plan: ultrasound the chest has been reviewed Will proceed with right thoracentesis Held am dose lovenox INR 1.6 Continue levaquin Pleural fluid will be sent for analysis, cytology and cultures I performed a history & physical examination of the patient and discussed their management with my nurse practitioner, Janina Clarke. I reviewed the nurse practitioner's note and agree with the documented findings and plan of care. Lung sounds are positive for bibasilar rales throughout the lung epperson. The findings and the impression was discussed with the patient. I attest to the documentation by the nurse practitioner. Time with Patient: Less than 30
--- NOTE | 2021-07-03 15:54 | XR ---
EXAMINATION TYPE: XR chest 1V portable DATE OF EXAM: 07/03/2021 CLINICAL HISTORY: Post right-sided thoracentesis. TECHNIQUE: Single AP portable upright view of the chest is obtained. COMPARISON: Chest x-ray from one day earlier FINDINGS: Improved but persistent small right pleural effusion. No pneumothorax after right-sided th oracentesis. Gross cardiomegaly with single lead pacemaker redemonstrated. Overlying Sternal wires ag ain seen. Patchy left basilar linear scarring and/or atelectasis redemonstrated. Osseous structures r emain demineralized. IMPRESSION: No pneumothorax after right-sided thoracentesis
[2021-07-03 16:27] LABS: Glucose,Whole Blood 108 mg/dL (75-99)
--- NOTE | 2021-07-03 16:29 | PCN ---
PROCEDURE NOTE PULMONARY/CRITICAL CARE PROCEDURE NOTE: RIGHT THORACENTESIS: PREOPERATIVE DIAGNOSIS: Right pleural effusion. POSTOPERATIVE DIAGNOSIS: Right pleural effusion. OPERATORS: 1. Dr. Koehler. 2. Dr. Clarke. The patient's procedure took placed in room 372. There was informed consent and universal timeout verifying correct patient, procedure, site, positioning and implant (s) or special equipment if applicable. Ultrasound guidance was used and appropriate fluid pocket was identified and marked. Patient was positioned, prepped and draped in usual sterile fashion. Lidocaine was used to anesthetize the area. A thoracentesis catheter was introduced into the pleural space and 450 mL of thin yellow fluid was removed from the right pleural space. Blood loss was none. The patient tolerated the procedure well without any immediate complications. A chest x-ray was ordered to rule out pneumothorax. Total Fluid Removed: 450 mL Color of Fluid : Thin yellow. Fluid was sent for appropriate laboratory tests, including microbiology, chemistry and cytology. MMODL / IJN: [id number] /
[2021-07-03] MEDS ORDERED: WARFARIN 3 MG TAB PO ONE (18:00)
[2021-07-03 20:42] LABS: Appearance,BF Hazy; RBC, Body Fluid 1380 /uL
[2021-07-03 20:43] LABS: Nucleated Cells, Body Fluid 120 /uL
[2021-07-03 20:45] LABS: Mononuclear WBC,Body Fluid 94 %; Polynuclear WBC,Body Fluid 6 %; Total Cells Counted,Body Fluid 100
[2021-07-03] MEDS: LOSARTAN 50 MG TAB PO SCH (20:56)
[2021-07-03] MEDS: TEMAZEPAM 15 MG CAP PO SCH (20:57)
[2021-07-03] MEDS ORDERED: ENOXAPARIN 80 MG/0.8 ML SYRINGE SQ SCH (21:00)
[2021-07-03 21:11] LABS: Glucose,Whole Blood 128 mg/dL (75-99)
[2021-07-04 04:21] LABS: Glucose, BF Source Thoracentesis Fluid; Glucose, Body Fluid 136 mg/dL; LDH, Body Fluid Source Thoracentesis Fluid; Total Protein, Body Fluid 1160 mg/dL
[2021-07-04 06:15] LABS: Glucose,Whole Blood 122 mg/dL (75-99)
[2021-07-04] MEDS: LEVOTHYROXINE 75 MCG TAB PO SCH (06:17)
[2021-07-04] MEDS: INSULIN ASPART (NovoLOG) 100 UNIT/ML VIAL SQ SCH ×2 (06:36→11:24)
[2021-07-04 07:54] VITALS: TEMP 97.9
[2021-07-04] MEDS: PANTOPRAZOLE 40 MG TABLET PO SCH (07:54)
[2021-07-04] MEDS: hydrALAZINE HCL 25 MG TAB PO SCH (07:54)
[2021-07-04] MEDS: CALCIUM CARB-VIT D 500 MG-5 MCG TAB PO SCH (07:54)
[2021-07-04] MEDS: atenoloL 50 MG TAB PO SCH (07:54)
[2021-07-04] MEDS: MONTELUKAST 10 MG TAB PO SCH (07:54)
[2021-07-04] MEDS: PARoxetine 10 MG TAB PO SCH (07:54)
[2021-07-04] MEDS: POTASSIUM CHLORIDE ER 10 MEQ TAB.ER.PRT PO SCH (07:54)
[2021-07-04 08:15] LABS: INR 2.3 (<1.2); Prothrombin Time 22.1 sec (9.0-12.0)
[2021-07-04 08:39] LABS: Glucose,Whole Blood 187 mg/dL (75-99)
[2021-07-04] MEDS ORDERED: predniSONE 20 MG TAB PO SCH (09:00)
[2021-07-04] MEDS ORDERED: LEVOFLOXACIN 500 MG TAB PO SCH (09:00)
[2021-07-04] MEDS: BUDESONIDE 1 MG/2 ML NEBU INHALATION SCH (10:02)
[2021-07-04] MEDS: FORMOTEROL FUMARATE 20 MCG/2 ML NEBU INHALATION SCH (10:03)
[2021-07-04] MEDS: ASPIRIN 81 MG PO SCH (10:03)
[2021-07-04] MEDS: DORZOLAMIDE HCL 2% DROPS 10 ML BTL BOTH EYES SCH (10:03)
[2021-07-04] MEDS: IPRATROPIUM-ALBUTEROL 3 ML NEB INHALATION SCH ×3 (10:03→16:12)
[2021-07-04 11:25] LABS: Glucose,Whole Blood 82 mg/dL (75-99)
[2021-07-04 11:29] VITALS: BP 166/67
[2021-07-04 11:52] VITALS: RESP 16
--- NOTE | 2021-07-04 14:28 | CT ---
EXAMINATION TYPE: CT chest wo con DATE OF EXAM: 07/04/2021 COMPARISON: Chest x-ray 07/03/2021 HISTORY: post Rt sided thoracentesis CT DLP: 304 mGycm. Automated Exposure Control for Dose Reduction was Utilized. TECHNIQUE: CT scan of the thorax is performed without IV contrast. FINDINGS: LUNGS: There is a small residual right-sided pleural effusion. No sizable pleural effusion on the lef t. Subsegmental areas of consolidation are most typical of atelectasis. No pneumothorax. MEDIASTINUM: Lack of IV contrast is noted to limit evaluation for mediastinal and especially hilar ad enopathy. Heart is markedly enlarged and there is a cardiac device global severe cardiomegaly. Annula r calcification is seen and there is calcification the aortic root and thoracic aorta. Maximal dimens ion measures 4 cm compatible with mild aneurysmal dilation calcification the tracheobronchial tree.. OTHER: Hypertrophic and degenerative changes of the spine. Sternotomy wires are seen. Somewhat hetero geneous appearance of the osseous structures could be degenerative although there is history of malig rashaun consider bone scan follow-up. Surgical clips gallbladder fossa. Upper pole left renal lesion is indeterminate. IMPRESSION: 1. Small residual right pleural effusion with no sizable pneumothorax. Radiodense structure seen kermit cent to the right heart border and/or adjacent to the right pleural space could be related to calcifi cation. Correlate clinically to exclude foreign body or other etiology. 2. Severe global cardiomegaly. 3. 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 4. Indeterminate left upper pole renal lesion only partially included on exam measures 26 Hounsfield units and does not meet the criteria of a simple cyst consider follow-up ultrasound.
--- NOTE | 2021-07-04 14:50 | P.PN ---
Subjective Progress Note Date: 07/04/21 Principal diagnosis: Acute hypoxic respiratory failure, COPD exacerbation, CHF, and possible pneumonia This is an 85-year-old female with a history of multiple medical problems in cluding atrial fibrillation, COPD, CHF, gastroesophageal reflux disease, hypertension, and hypothyroidism, who presents to the emergency department at [facility] in [place]. The patient was transferred down here to be evaluated. She was initially seen by the ER physician. She is a very poor historian but apparently her son noticed that she was having some difficulty in breathing, and she was shaking. She hadn't been feeling well for a couple days prior to admission. The patient apparently stopped her Coumadin a couple days ago, because she was going to have a tooth extracted today. A ventilation perfusion scan was ordered, and was indeterminate. Currently, she is on 2 L, nasal cannula. She's getting an IV at [facility], and IV Levaquin. She looks very comfortable, and is feeling much improved. Her primary physician in that area is Dr. Eboni Chaney. Labs and x-rays are ordered but are not yet back. The perfusion lung scan was determined to be intermediate probability for pulmonary embolism. Echocardiogram was ordered but not yet interpreted. On 07/01/2021 patient seen in follow-up on selective care unit, she is sitting up in the chair, she looks very comfortable, no dyspnea, only occasional cough, mild congestion, no phlegm production, she is currently off the oxygen, she is breathing comfortably, no complaints of chest discomfort, she is on point and was seen at a rate of 50 ML per hour. She is on Levaquin for possibility of underlying pneumonia, her pro-calcitonin level came back at 30.9, supporting possibility of underlying bacterial pneumonia. Does not appear to be fluid overloaded, and despite elevated proBNP patient's oxygenation seems to be stable, and she does not appear to be in acute exacerbation of CHF clinically. She was given IV fluids, and her renal function is improved on today's labs, BUN is 64 and creatinine is down to 1.8. Serum sodium is improved and is at 131, the rest of electrolytes were within normal limits. On 07/02/2021 patient seen in follow-up on selective care unit, she is a bit more dyspneic on today's exam, she was placed on supplemental oxygen, although she is not requiring very much oxygen, she sat 100% on 2 L. She states she does have increased exertional dyspnea. She has been off her Lasix since admission, she was actually given fluids related to acute kidney injury, she does have history of mechanical mitral valve replacement, and she does have moderately severe aortic stenosis. [facility] showed gram- positive cocci in chains, final culture is pending, currently patient is on Levaquin for empiric antibiotic coverage, she has had no fever or chills, mildly congestive cough, no phlegm production. Repeat chest x-ray is pending for today. Today's labs have been reviewed, sodium is 133, potassium is 4.9, chloride is 105, CO2 is 22, BUN is 56, creatinine is 1.68, renal profile is improving, her INR today is 1.1, and patient is on therapeutic dose Lovenox 70 mg twice daily, and on the Coumadin On 07/03/2021 patient is seen in follow-up on selective care unit, she is on 2 L of oxygen and her pulse ox the 100%, she states she does have exertional dy spnea, and she feels better on oxygen as she does desaturate with ambulation. No complaints of chest pain, only occasional cough, no phlegm production. Ultrasound of the chest that has been completed showing right pleural effusion pocket of 7.1 cm, and left pleural effusion pocket of 1.9 cm. Patient is on Levaquin for empiric antibiotic coverage, Lasix still remains on hold, she did receive 7.5 mg of Coumadin last night, her INR today is 1.6. This morning his Lovenox has been held for possibility right-sided thoracentesis. Today's labs have been reviewed showing low blood cell, 6.2, hemoglobin is 10.8, sodium is 135, the rest of electrolytes were within normal limits, renal profile continues to improve, BUN 43 creatinine is 1.5. On 07/04/2021 patient seen in follow-up on selective care unit. She is status post right-sided thoracentesis with removal of 450 mL of pleural fluid which was sent for analysis, cytology and cultures. Pleural fluid analysis reveals transudative fluid, consistent with congestive heart failure. And agree patient is off the oxygen, she is mildly short of breath with exertion, but overall feels better. No fever or chills, occasional cough, no phlegm production, no chest discomfort. She remains on Levaquin for empiric antibiotic coverage. she is on nebulized bronchodilators, she is on prednisone 40 mg daily. No new labs today, other than pleural fluid analysis. Vitals Signs have been stable overnight. Objective - Vital Signs Vital signs: Vital Signs Temp 97.9 F 07/04/21 11:26 Pulse 62 07/04/21 12:02 Resp 16 07/04/21 12:02 BP 166/67 07/04/21 11:26 Pulse Ox 100 07/04/21 11:49 Intake & Output 07/03/21 07/04/21 07/04/21 18:59 06:59 18:59 Intake Total 840 120 Balance 840 120 Weight 72.5 kg Intake: Oral 840 120 Other: # Voids 1 1 - Exam GENERAL EXAM: Alert, very pleasant, 85-year-old white female, mildly short of breath with exertion, currently on room air 100% on room air comfortable in no apparent distress. HEAD: Normocephalic/atraumatic. EYES: Normal reaction of pupils, equal size. Conjunctiva pink, sclera white. NOSE: Clear with pink turbinates. THROAT: No erythema or exudates. NECK: No masses, no JVD, no thyroid enlargement, no adenopathy. CHEST: No chest wall deformity. Symmetrical expansion. LUNGS: Equal air entry with basilar crackles, diminished breath sounds at right base CVS: Regular rate and rhythm, normal S1 and S2, no gallops, very loud systolic murmur throughout the precordium, no rubs ABDOMEN: Soft, nontender. No hepatosplenomegaly, normal bowel sounds, no guarding or rigidity. EXTREMITIES: No clubbing, no edema, no cyanosis, 2+ pulses and upper and lower extremities. MUSCULOSKELETAL: Muscle strength and tone normal. SPINE: No scoliosis or deformity SKIN: No rashes CENTRAL NERVOUS SYSTEM: Alert and oriented -3. No focal deficits, tone is normal in all 4 extremities. PSYCHIATRIC: Alert and oriented -3. Appropriate affect. Intact judgment and insight. - Labs CBC & Chem 7: 07/03/21 08:57 07/03/21 08:57 Labs: Abnormal Lab Results - Last 24 Hours (Table) 07/03/21 07/03/21 07/04/21 Range/Units 16:26 20:32 05:49 PT (9.0-12.0) sec INR (<1.2) POC Glucose (mg/dL) 108 H 128 H 122 H (75-99) mg/dL 07/04/21 07/04/21 Range/Units 07:21 08:38 PT 22.1 H (9.0-12.0) sec INR 2.3 H (<1.2) POC Glucose (mg/dL) 187 H (75-99) mg/dL Microbiology - Last 24 Hours (Table) 07/03/21 15:40 Gram Stain - Preliminary Sputum Sputum Culture - Preliminary 07/03/21 15:15 Gram Stain - Preliminary Thoracic Fluid Body Fluid Culture - Preliminary 07/02/21 13:03 Blood Culture - Preliminary Blood No Growth after 24 hours 07/02/21 12:47 Blood Culture - Preliminary Blood No Growth after 24 hours Assessment and Plan Plan: Assessment: #1. Acute hypoxic respiratory failure, multifactorial, related to acute exacerbation of COPD, and underlying pneumonia based on procalcitonin. Possibility of acute exacerbation of CHF is also considered an elevated proBNP at 16,000. However clinically patient seems to be euvolemic #2. Right-sided pleural effusion, status post right thoracentesis on 07/03/2021, and pleural fluid was transudate consistent with fluid of congestive heart failure. #3. Gram-positive bacteremia, [facility] showed gram-positive cocci in chains, possible strep pneumonia, awaiting final culture. Currently on Levaquin, follow up blood cultures are negative #4. History of chronic atrial fibrillation, chronically on Coumadin, which was recently stopped for a dental extraction, currently patient is back on Coumadin, and subcu Lovenox for bridge #5. Status post pacemaker insertion #6. History of mitral valve replacement in 1999 #7. Hypertension #8. Hypothyroidism #9. Nonsmoker #10. Chronic kidney disease, stage III Plan: Clinically patient is stable, breathing has improved, She is on room air, she's had no fever or chills Pleural fluid was transudate, consistent with fluid of congestive heart failure Computed tomography scan of the chest was obtained and reviewed with Dr. Koehler, showing severe cardiomegaly No evidence of pneumonia Patient can go back on low-dose Lasix She can complete her course of oral antibiotics, Follow-up blood cultures have shown no growth thus far. She will need outpatient follow-up with Dr. Mendoza in office in one week I performed a history & physical examination of the patient and discussed their management with my nurse practitioner, Janina Clarke. I reviewed the nurse practitioner's note and agree with the documented findings and plan of care. Lung sounds are positive for bibasilar rales throughout the lung epperson. The findings and the impression was discussed with the patient. I attest to the documentation by the nurse practitioner. Time with Patient: Less than 30
[2021-07-04 16:16] VITALS: PULSE 64
[2021-07-04 16:48] LABS: Glucose,Whole Blood 118 mg/dL (75-99)
--- NOTE | 2021-07-04 17:36 | P.DS ---
Providers Date of admission: 06/30/21 01:42 Expected date of discharge: 07/04/21 Attending physician: Zach Katz Consults: 06/30/21 01:41 Consult Physician Routine Consulting Provider: Beverly Mendoza Consult Reason/Comments: Your patient Do you want consulting provider notified?: Yes Primary care physician: Eboni Chaney [facility] Course: Chief Complaint: Short of breath This is a pleasant 85-year-old patient Dr. Eboni Chaney. Patient is transferred here from [facility]. Patient at the baseline uses 2 L of oxygen at night. Able to get from the house. Patient presents with worsening short of breath for last 4 days. No edema. No cough. She having chills. Decreased appetite. Patient been having 3 or 4 bowel movements a day. Soft. Patient is underlying atrial fibrillation rate controlled. Patient had her Coumadin discontinued 3 days ago for about towards intervention. Patient did test negative for influenza AB and COVID another hospital. Patient has some urinary symptoms. Admitted with right-sided pneumonia, COPD exacerbation, hyponatremia. Started on IV Levaquin. IV fluids for renal failure. Does off Cozaar cutback. IV Solu-Medrol. INR subtherapeutic. Started on Lovenox therapeutic dose. Patient's creatinine improved from 2.03 down to 1.51. Lasix dose was adjusted. 07/04/2021: Today had right-sided thoracentesis done for 50 mL of thin yellow fluid was removed. Computed tomography scan chest showed cardiomegaly. Patient cleared by pulmonary. Discussed. Discussed with the patient. Feeling much better. Discussion and discharge planning more than 35 minutes Past medical history to include: Atrial fibrillation, COPD, CHF, GERD, hypertension, hypothyroid, varicose veins, home oxygen 2 L at night Social history: Lives alone. Smoked a pack a day for 20 years stopped in 1977. Family history: Adopted Physical examination: VITAL SIGNS: 97.9, 61, 18, 1 26 x 60, 100% on 2 L GENERAL: Sitting up in a chair, awake, comfortable EYES: Pupils equal. Conjunctiva normal. HEENT: External appearance of nose and ears normal, oral cavity grossly normal. NECK: JVD not raised; masses not palpable. HEART: Irregular heart sounds; no edema. LUNGS: Respiratory rate increased; decreased breaths sounds ABDOMEN: Soft, nontender, liver spleen not palpable, no masses palpable. PSYCH: Alert and oriented x3; mood and affect normal MUSCULAR skeletal: Evidence of OA. INVESTIGATIONS, reviewed in the clinical context: CT chest: Cardiomegaly. Left upper pole renal lesion. July 03: White count 6.2 hemoglobin 10.8 INR 1.6 potassium 5.1. 43 creatinine 1.51 July 02: Sodium 133 potassium 4.9 BUN 56 creatinine 1.68 procalcitonin 40.6 INR 1.1 July 01: INR 1 potassium 4.7 sodium 131 BUN 64 creatinine 1.88 UA: Negative Renal ultrasound: Showing renal cyst. WBC 8.1 hemoglobin 9.8 platelets 105 lymphocytes 0.4 sodium 126 potassium 4.9 BUN 61 creatinine 2.03 Pro-calcitonin 30.9 EKG tracing personally reviewed by me-atrial fibrillation with some ST segment changes. VQ scan: Intermediate probably for PE. 2-D echocardiogram: EF 55-60%. Moderate aortic stenosis. Mechanical mitral valve. Severe tricuspid regurgitation. Moderate pulmonary hypertension. Chest x-ray film personally reviewed by me-right upper lobe infiltrate and possible right basilar infiltrate/effusion Assessment and plan: -right-sided pneumonia. Gram-negative organism possibly. Patient presents with chills and 4 days of increasing shortness of breath.: Better IV Levaquin-changed to by mouth Levaquin-3 days -Acute COPD exacerbation in an ex-smoker: Improving DuoNeb. Changed to inhaled Pulmicort and Perforomist. IV Solu-Medrol 40 mg every 12. DC home on prednisone taper -Hyponatremia from decreased solute intake: Improving Encourage oral intake. Received IV fluids. -Severe tricuspid regurgitation Follow clinically -Secondary moderate pulmonary hypertension from COPD Follow clinically -Acute kidney injury, possibly prerenal/ATN.: Admission creatinine 2.03. Today 1.51 t. -Hypothyroid Synthroid 75 g a day -Essential hypertension with CK D. Currently blood pressure running on the lower side. Continue atenolol 50 mg day. Cozaar decreased to 50 mg a day -CK D stage III likely nephrosclerosis Ultrasound showing renal cyst.. UA: Unremarkable. Follow-up outpatient with nephrology -Anxiety not otherwise specified Paxil 20 mg daily -Pacemaker for sick sinus syndrome Telemetry -Mechanical mitral valve Follow INR. Lovenox 70 mg subcu every 12 hours until INR therapeutic. INR therapeutic. DC Lovenox -Left kidney lesion. Outpatient follow-up with urology. I did speak to the patient when she left the hospital on the phone. She is aware that she has a cyst. But she'll follow-up with her family doctor and then follow-up with urology. Disposition: Home Patient Condition at Discharge: Fair Plan - Discharge Summary Discharge Rx Participant: No New Discharge Prescriptions: New Aspirin 81 mg PO MOWEFR tab Losartan [Cozaar] 50 mg PO HS #30 tab Levofloxacin [Levaquin] 500 mg PO Q24H #3 tab predniSONE 10 mg PO DAILY #30 tab Continue Brinzolamide [Azopt 1% Ophth Susp] 1 drop RIGHT EYE BID Bimatoprost [Lumigan .01% Ophth Soln] 1 drop BOTH EYES HS PARoxetine HCL [Paxil] 5 mg PO DAILY Lansoprazole [Prevacid] 30 mg PO DAILY Eszopiclone [Lunesta] 2 mg PO HS atenoloL [Tenormin] 50 mg PO DAILY Potassium Chloride [Klor-Con 10 ER] 20 meq PO DAILY Warfarin Sodium [Coumadin] 5 mg PO HS Montelukast [Singulair] 10 mg PO DAILY Calcium Carbonate/Vitamin D3 [Calcium 600 mg-Vit D3 5 mcg (200 unit)] 1 tab PO DAILY Warfarin [Coumadin] 0.5 mg PO HS Fluticasone/Umeclidin/Vilanter [Trelegy Ellipta 100-62.5-25] 1 puff INHALATION RT-DAILY Spironolactone [Aldactone] 25 mg PO DAILY Levothyroxine Sodium [Synthroid] 75 mcg PO DAILY hydrALAZINE HCL [Apresoline] 25 mg PO BID Changed Furosemide [Lasix] 40 mg PO BID #0 Discontinued Furosemide [Lasix] 80 mg PO DAILY Digoxin [Lanoxin] 125 mcg PO DAILY Losartan Potassium 100 mg PO DAILY Meclizine [Antivert] 12.5 mg PO Q6H PRN PRN Reason: Nausea Discharge Medication List Bimatoprost [Lumigan .01% Ophth Soln] 1 drop BOTH EYES HS 02/03/17 [History] Brinzolamide [Azopt 1% Ophth Susp] 1 drop RIGHT EYE BID 02/03/17 [History] Eszopiclone [Lunesta] 2 mg PO HS 02/03/17 [History] Lansoprazole [Prevacid] 30 mg PO DAILY 02/03/17 [History] Montelukast [Singulair] 10 mg PO DAILY 02/03/17 [History] PARoxetine HCL [Paxil] 5 mg PO DAILY 02/03/17 [History] Potassium Chloride [Klor-Con 10 ER] 20 meq PO DAILY 02/03/17 [History] Warfarin Sodium [Coumadin] 5 mg PO HS 02/03/17 [History] atenoloL [Tenormin] 50 mg PO DAILY 02/03/17 [History] Calcium Carbonate/Vitamin D3 [Calcium 600 mg-Vit D3 5 mcg (200 unit)] 1 tab PO DAILY 06/30/21 [History] Fluticasone/Umeclidin/Vilanter [Trelegy Ellipta 100-62.5-25] 1 puff INHALATION RT-DAILY 06/30/21 [History] Levothyroxine Sodium [Synthroid] 75 mcg PO DAILY 06/30/21 [History] Spironolactone [Aldactone] 25 mg PO DAILY 06/30/21 [History] Warfarin [Coumadin] 0.5 mg PO HS 06/30/21 [History] hydrALAZINE HCL [Apresoline] 25 mg PO BID 06/30/21 [History] Aspirin 81 mg PO MOWEFR tab 07/04/21 [Rx] Furosemide [Lasix] 40 mg PO BID #0 07/04/21 [Rx] Levofloxacin [Levaquin] 500 mg PO Q24H #3 tab 07/04/21 [Rx] Losartan [Cozaar] 50 mg PO HS #30 tab 07/04/21 [Rx] predniSONE 10 mg PO DAILY #30 tab 07/04/21 [Rx] Follow up Appointment(s)/Referral(s): Cardiology, [Other] - 1 Week Beverly Mendoza MD [STAFF PHYSICIAN] - 1 Week (call wednesday to schedule follow up) [facility], [NON-STAFF] - Eboni Chaney MD [Primary Care Provider] - 1 Week (call wednesday to schedule follow up) Patient Instructions/Handouts: Pleural Effusion (IP), Thoracentesis (GEN) Discharge Disposition: HOME SELF-CARE
[2021-07-04] MEDS ORDERED: WARFARIN 0.5 MG TAB PO ONE (18:00)
[2021-07-04] MEDS ORDERED: WARFARIN 5 MG TAB PO ONE (18:00)
== END 2021-07-04 17:11 | disposition home or self-care (01) | DRG 177 ==
LOC: EC 23:56 → 3SCARD 06-30 01:42
PROVIDERS: ADMIT Hospitalist; ATTEND Hospitalist
PROC: 0W993ZZ Drainage of Right Pleural Cavity, Percutaneous Approach (ICD-10-PCS; principal; 2021-07-03)
DX: J15.6 Pneumonia due to other Gram-negative bacteria (principal); J96.01 Acute respiratory failure with hypoxia; E87.1 Hypo-osmolality and hyponatremia; I13.0 Hypertensive heart and chronic kidney disease with heart failure and stage 1 through stage 4 chronic kidney disease, or unspecified chronic kidney disease; J44.1 Chronic obstructive pulmonary disease with (acute) exacerbation; N17.9 Acute kidney failure, unspecified; J90 Pleural effusion, not elsewhere classified; E03.9 Hypothyroidism, unspecified; F41.9 Anxiety disorder, unspecified; I07.1 Rheumatic tricuspid insufficiency; I35.0 Nonrheumatic aortic (valve) stenosis; I48.91 Unspecified atrial fibrillation; I27.23 Pulmonary hypertension due to lung diseases and hypoxia; Z79.82 Long term (current) use of aspirin; Z79.51 Long term (current) use of inhaled steroids; Z79.01 Long term (current) use of anticoagulants; N28.1 Cyst of kidney, acquired; N18.30 Chronic kidney disease, stage 3 unspecified; Z95.2 Presence of prosthetic heart valve; Z95.0 Presence of cardiac pacemaker; Z87.891 Personal history of nicotine dependence; Z79.899 Other long term (current) drug therapy; Z79.890 Hormone replacement therapy; K21.9 Gastro-esophageal reflux disease without esophagitis; I83.90 Asymptomatic varicose veins of unspecified lower extremity; I50.9 Heart failure, unspecified
CPT/HCPCS: 71045; 71046; 71250; 76604; 76770; 78582; 80048; 80053; 81003; 82945; 83615; 83880; 84145; 84157; 85025; 85610; 87040; 87070; 87205; 88108; 88305; 89050; 93005; 93306; 94640; 94760; 99285

== ENCOUNTER 2022-03-16 09:41 | Emergency (ER) | payer MEDICARE, BC ==
[2022-03-16] MEDS ORDERED: PHYTONADIONE 10 MG in SODIUM CHLORIDE 0.9% 50 ML IVPB STA (09:50)
[2022-03-16] MEDS ORDERED: niCARdipine 20 MG in SODIUM CHLORIDE 0.9% 192 ML IV SCH (10:00)
--- NOTE | 2022-03-16 10:06 | ED ---
Neuro HPI - General Chief Complaint: Neuro Symptoms/Deficit Stated Complaint: Code Ultaplase Time Seen by Provider: 03/16/22 09:41 Source: patient, EMS Mode of arrival: EMS Limitations: no limitations - History of Present Illness Is the patient presenting with stroke symptoms?: Yes Initial Comments: 86-year-old female with past history of thyroid disorder, A. fib on Coumadin, COPD, hypertension presents to the emergency department with strokelike symptoms. Reports that she awoke around 7 AM and didn't feel well in bed. She can move all extremities. Around 7:30 she noted that she had complete paralysis of her right arm. Denies any visual or speech deficits. No involvement of the patient's right leg. She has had 3 previous TIAs, the last of which was 3 months ago. No residual lasting deficits. She is on Coumadin for A. fib. Reports that she has a home monitor and checks her INR every Wednesday. Last Wednesday her INR was 5. She called her primary care physician who told her to skip her dose that day. She continue taking her regular dose of 5 mg daily. Intermittently will take 4 mg when she "feels as if she needs a lower dose". She did take 5 mg last night. Denies any head trauma. Does report to zulayul ty controlling her high blood pressure. No recent medication changes other than addition of a baby aspirin. Patient unaware of the timeframe as to when she started taking this medication. States that her quality of life has gone down over the past several months. No weight loss or gain. No appetite changes. No other alleviating, precipitating or modifying factors - Related Data Home Medications: Home Medications Medication Instructions Recorded Confirmed Bimatoprost [Lumigan 0.01% Ophth 1 drop BOTH EYES HS 02/03/17 06/30/21 Soln] Brinzolamide [Azopt 1% Ophth Susp] 1 drop RIGHT EYE BID 02/03/17 06/30/21 Eszopiclone [Lunesta] 2 mg PO HS 02/03/17 06/30/21 Lansoprazole [Prevacid] 30 mg PO DAILY 02/03/17 06/30/21 Montelukast [Singulair] 10 mg PO DAILY 02/03/17 06/30/21 PARoxetine HCL [Paxil] 5 mg PO DAILY 02/03/17 06/30/21 Potassium Chloride [Klor-Con 10 ER] 20 meq PO DAILY 02/03/17 06/30/21 Warfarin Sodium [Coumadin] 5 mg PO HS 02/03/17 06/30/21 atenoloL [Tenormin] 50 mg PO DAILY 02/03/17 06/30/21 Calcium Carbonate/Vitamin D3 1 tab PO DAILY 06/30/21 06/30/21 [Calcium 600 mg-Vit D3 5 mcg (200 unit)] Fluticasone/Umeclidin/Vilanter 1 puff INHALATION RT-DAILY 06/30/21 06/30/21 [Trelegy Ellipta 100-62.5-25] Levothyroxine Sodium [Synthroid] 75 mcg PO DAILY 06/30/21 06/30/21 Spironolactone [Aldactone] 25 mg PO DAILY 06/30/21 06/30/21 Warfarin [Coumadin] 0.5 mg PO HS 06/30/21 06/30/21 hydrALAZINE HCL [Apresoline] 25 mg PO BID 06/30/21 06/30/21 Previous Rx's Medication Instructions Recorded Aspirin 81 mg PO MOWEFR tab 07/04/21 Furosemide [Lasix] 40 mg PO BID #0 07/04/21 Levofloxacin [Levaquin] 500 mg PO Q24H #3 tab 07/04/21 Losartan [Cozaar] 50 mg PO HS #30 tab 07/04/21 predniSONE 10 mg PO DAILY #30 tab 07/04/21 Allergies/Adverse Reactions: Allergies Allergy/AdvReac Type Severity Reaction Status Date / Time Penicillins Allergy Swelling, Verified 06/30/21 09:30 itching, red skin clindamycin AdvReac Vomiting Verified 06/30/21 09:30 Review of Systems ROS Statement: Those systems with pertinent positive or pertinent negative responses have been documented in the HPI. ROS Other: All systems not noted in ROS Statement are negative. General Exam Limitations: no limitations General appearance: alert, in no apparent distress Head exam: Present: atraumatic, normocephalic, normal inspection Eye exam: Present: normal appearance, PERRL, EOMI. Absent: scleral icterus, conjunctival injection, periorbital swelling ENT exam: Present: normal exam, mucous membranes moist Neck exam: Present: normal inspection. Absent: tenderness, meningismus, lymphadenopathy Respiratory exam: Present: normal lung sounds bilaterally. Absent: respiratory distress, wheezes, rales, rhonchi, stridor Cardiovascular Exam: Present: regular rate, normal rhythm, normal heart sounds. Absent: systolic murmur, diastolic murmur, rubs, gallop, clicks GI/Abdominal exam: Present: soft, normal bowel sounds. Absent: distended, tenderness, guarding, rebound, rigid Extremities exam: Present: normal capillary refill, other (0/5 strength right upper extremity. Light touch sensation decreased.). Absent: tenderness, pedal edema, joint swelling, calf tenderness Back exam: Present: normal inspection Neurological exam: Present: alert, oriented X3, CN II-XII intact Psychiatric exam: Present: normal affect, normal mood Skin exam: Present: warm, dry, intact, normal color. Absent: rash Stroke MDM - Lab Data Result diagrams: 03/16/22 09:54 03/16/22 09:54 Lab Results 03/16/22 03/16/22 03/16/22 Range/Units 09:54 09:54 09:54 WBC 4.7 (3.8-10.6) k/uL RBC 3.47 L (3.80-5.40) m/uL Hgb 9.0 L (11.4-16.0) gm/dL Hct 28.5 L (34.0-46.0) % MCV 82.2 (80.0-100.0) fL MCH 25.8 (25.0-35.0) pg MCHC 31.4 (31.0-37.0) g/dL RDW 16.9 H (11.5-15.5) % Plt Count 237 (150-450) k/uL MPV 7.8 Neutrophils % (Manual) 71 % Band Neuts % (Manual) 1 % Lymphocytes % (Manual) 12 % Monocytes % (Manual) 15 % Myelocytes % 2 % Neutrophils # (Manual) 3.30 (1.3-7.7) k/uL Lymphocytes # (Manual) 0.56 L (1.0-4.8) k/uL Monocytes # (Manual) 0.71 (0-1.0) k/uL Myelocytes # (Manual) 0.09 H (0) k/uL Nucleated RBCs 0 (0-0) /100 WBC Manual Slide Review Performed Hypochromasia Moderate Poikilocytosis (manual Present Anisocytosis Slight PT 33.5 H (9.0-12.0) sec INR 3.4 H (<1.2) APTT 46.6 H (22.0-30.0) sec Sodium 131 L (137-145) mmol/L Potassium 4.4 (3.5-5.1) mmol/L Chloride 99 (98-107) mmol/L Carbon Dioxide 25 (22-30) mmol/L Anion Gap 7 mmol/L BUN 24 H (7-17) mg/dL Creatinine 1.27 H (0.52-1.04) mg/dL Est GFR (CKD-EPI)AfAm 45 (>60 ml/min/1.73 sqM) Est GFR (CKD-EPI)NonAf 39 (>60 ml/min/1.73 sqM) Glucose 97 (74-99) mg/dL POC Glucose (mg/dL) (70-110) mg/dL POC Glu Calender Let Off Helper ID Calcium 8.2 L (8.4-10.2) mg/dL Total Bilirubin 0.9 (0.2-1.3) mg/dL AST 16 (14-36) U/L ALT 6 (4-34) U/L Alkaline Phosphatase 87 (38-126) U/L Troponin I (0.000-0.034) ng/mL Total Protein 5.8 L (6.3-8.2) g/dL Albumin 2.9 L (3.5-5.0) g/dL Blood Type Blood Type Recheck Bld Type Recheck Status Antibody Screen Antibody Identification Direct Antiglob Test Transfuse Plasma Spec Expiration Date 03/16/22 03/16/22 03/16/22 Range/Units 09:54 09:54 09:55 WBC (3.8-10.6) k/uL RBC (3.80-5.40) m/uL Hgb (11.4-16.0) gm/dL Hct (34.0-46.0) % MCV (80.0-100.0) fL MCH (25.0-35.0) pg MCHC (31.0-37.0) g/dL RDW (11.5-15.5) % Plt Count (150-450) k/uL MPV Neutrophils % (Manual) % Band Neuts % (Manual) % Lymphocytes % (Manual) % Monocytes % (Manual) % Myelocytes % % Neutrophils # (Manual) (1.3-7.7) k/uL Lymphocytes # (Manual) (1.0-4.8) k/uL Monocytes # (Manual) (0-1.0) k/uL Myelocytes # (Manual) (0) k/uL Nucleated RBCs (0-0) /100 WBC Manual Slide Review Hypochromasia Poikilocytosis (manual Anisocytosis PT (9.0-12.0) sec INR (<1.2) APTT (22.0-30.0) sec Sodium (137-145) mmol/L Potassium (3.5-5.1) mmol/L Chloride (98-107) mmol/L Carbon Dioxide (22-30) mmol/L Anion Gap mmol/L BUN (7-17) mg/dL Creatinine (0.52-1.04) mg/dL Est GFR (CKD-EPI)AfAm (>60 ml/min/1.73 sqM) Est GFR (CKD-EPI)NonAf (>60 ml/min/1.73 sqM) Glucose (74-99) mg/dL POC Glucose (mg/dL) (70-110) mg/dL POC Glu Calender Let Off Helper ID Calcium (8.4-10.2) mg/dL Total Bilirubin (0.2-1.3) mg/dL AST (14-36) U/L ALT (4-34) U/L Alkaline Phosphatase (38-126) U/L Troponin I <0.012 (0.000-0.034) ng/mL Total Protein (6.3-8.2) g/dL Albumin (3.5-5.0) g/dL Blood Type O Negative Blood Type Recheck O Neg Bld Type Recheck Status No Antibody Screen POSITIVE Antibody Identification Not Reportable Direct Antiglob Test Not Reportable Transfuse Plasma CROSSING GUARD Spec Expiration Date 03/19/2022235403/16/22 Range/Units 10:06 WBC (3.8-10.6) k/uL RBC (3.80-5.40) m/uL Hgb (11.4-16.0) gm/dL Hct (34.0-46.0) % MCV (80.0-100.0) fL MCH (25.0-35.0) pg MCHC (31.0-37.0) g/dL RDW (11.5-15.5) % Plt Count (150-450) k/uL MPV Neutrophils % (Manual) % Band Neuts % (Manual) % Lymphocytes % (Manual) % Monocytes % (Manual) % Myelocytes % % Neutrophils # (Manual) (1.3-7.7) k/uL Lymphocytes # (Manual) (1.0-4.8) k/uL Monocytes # (Manual) (0-1.0) k/uL Myelocytes # (Manual) (0) k/uL Nucleated RBCs (0-0) /100 WBC Manual Slide Review Hypochromasia Poikilocytosis (manual Anisocytosis PT (9.0-12.0) sec INR (<1.2) APTT (22.0-30.0) sec Sodium (137-145) mmol/L Potassium (3.5-5.1) mmol/L Chloride (98-107) mmol/L Carbon Dioxide (22-30) mmol/L Anion Gap mmol/L BUN (7-17) mg/dL Creatinine (0.52-1.04) mg/dL Est GFR (CKD-EPI)AfAm (>60 ml/min/1.73 sqM) Est GFR (CKD-EPI)NonAf (>60 ml/min/1.73 sqM) Glucose (74-99) mg/dL POC Glucose (mg/dL) 90 (70-110) mg/dL POC Glu Calender Let Off Helper ID [place] Travis Calcium (8.4-10.2) mg/dL Total Bilirubin (0.2-1.3) mg/dL AST (14-36) U/L ALT (4-34) U/L Alkaline Phosphatase (38-126) U/L Troponin I (0.000-0.034) ng/mL Total Protein (6.3-8.2) g/dL Albumin (3.5-5.0) g/dL Blood Type Blood Type Recheck Bld Type Recheck Status Antibody Screen Antibody Identification Direct Antiglob Test Transfuse Plasma Spec Expiration Date - Medical Decision Making Upon arrival patient was immediately evaluated in the gramajo. 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 Patient does have an NIH of 6 due to flaccid paralysis of the right arm, ataxia and sensory deficit in that extremity. She is immediately taken to CT. I spoke with Dr. Sultana - will await CT results. CT and CT angiography is obtained. Patient does have a large left-sided parietal brain bleed with a component of subarachnoid hemorrhage. I did speak with Dr. Sultana - blood pressure goal less than 160. We'll reverse the patient's Coumadin. Patient was given 10 mg of vitamin K IV. FFP is ordered. She is started on 5 mg of Cardene. I spoke with Dr. Miller at [facility] who will accept transfer the patient. I did receive blood work back prior to patient's transfer with an INR 3.4. Patient remained in stable condition and transported priority one down to [facility] 03/16/22 10:36 EKG demonstrates A. fib with rate of 83. QRS 106. QTC 415. Some PVCs due to pacemaker. No acute ST segment elevation or depression Past Medical History Past Medical History: Atrial Fibrillation, Asthma, Heart Failure, COPD, GERD/Reflux, Hypertension, Thyroid Disorder Additional Past Medical History / Comment(s): leaky heart valve, varicose veins, uses oxygen at night, History of Any Multi-Drug Resistant Organisms: None Reported Past Surgical History: Cardiac Valve Replacement, Section, Cholecystectomy, Heart Catheterization, Pacemaker, Tonsillectomy Additional Past Surgical History / Comment(s): mitral valve replacement 1999, ashley cataracts Past Anesthesia/Blood Transfusion Reactions: No Reported Reaction Additional Past Anesthesia/Blood Transfusion Reaction / Comment(s): adopted Type of Cardiac Device: Permanent Pacemaker Device Placement Date:: 2016 Past Psychological History: No Psychological Hx Reported Smoking Status: Never smoker Past Alcohol Use History: None Reported Past Drug Use History: None Reported - Past Family History Mother Family Medical History: Unable to Obtain Additional Family Medical History / Comment(s): adopted Course Vital Signs 03/16/22 03/16/22 03/16/22 09:55 10:00 10:11 Temperature 97.5 F L Pulse Rate 50 L 77 Respiratory 20 18 Rate Blood Pressure 177/77 177/77 157/62 O2 Sat by Pulse 99 97 Oximetry 03/16/22 10:34 Temperature 97.8 F Pulse Rate 83 Respiratory 18 Rate Blood Pressure 127/58 O2 Sat by Pulse 96 Oximetry - Reevaluation(s) Reevaluation #1: Spoke with Dr. Sultana - CT brain and CT angiography of the head and neck are being performed. He will review the studies. Possible TPA candidate if INR less than 1.7 03/16/22 9:45 Reevaluation #2: Spoke with Dr. Sultana - blood pressure goal less than 160. Okay for FFP and vitamin K. Attempt transfer to [facility] 03/16/22 10:09 Reevaluation #3: Dr. Miller accepted at [facility] 03/16/22 10:18 Critical Care Time Critical Care Time: Yes Critical Care Time: 35 minutes Disposition Clinical Impression: Cerebrovascular accident (CVA), Intraparenchymal hematoma of brain, Supratherapeutic INR Disposition: OTHER INSTITUTION NOT DEFINED Condition: Serious Is patient prescribed a controlled substance at d/c from ED?: No Referrals: Eboni Chaney MD [Primary Care Provider] - 1-2 days Time of Disposition: 10:35 - Out of Hospital Transfer - Req. Specs Out of Hospital Transfer - Requested Specifics: Other Emergency Center ([facility])
--- NOTE | 2022-03-16 10:08 | CT ---
EXAMINATION TYPE: CT brain wo con for TPA CT DLP: 1113.6 mGycm, Automated exposure control for dose reduction was used. DATE OF EXAM: 03/16/2022 9:51 AM COMPARISON: None. CLINICAL INDICATION:Female, 86 years old with history of Neuro deficit, acute, stroke suspected, Righ t arm weakness. TECHNIQUE: Brain: Multiple axial CT images of the brain were obtained without IV contrast. FINDINGS: Brain: Extra-axial spaces: Small amount of high density blood seen within the sulci of the posterior frontal /parietal region. Ventricular system: Within normal limits Cerebral parenchyma: There is high density intra-axial blood products within the left posterior front al/parietal region measuring 3.1 x 2.2 x 3.0 cm. Cerebellum: Unremarkable. Mass effect: No evidence of midline shift. Intracranial vasculature: Atherosclerotic calcifications of the intracranial vessels. Soft tissues: Normal. Calvarium/osseous structures: No depressed skull fracture. Paranasal sinuses and mastoid air cells: Mild scattered paranasal sinus disease. Visualized orbits: Senile calcific scleral plaques are present. The lenses are removed from the globe s. Findings communicated to Dr. Barb Rodriguez DO on 03/16/2022 10:[address] Julio Cesar Canchola. IMPRESSION: 1. Intraparenchymal hemorrhage of the left posterior frontal/parietal region. Underlying hemorrhagic mass not entirely excluded. 2. Small subarachnoid hemorrhage overlying a forementioned intraparenchymal hemorrhage.
[2022-03-16 10:09] LABS: Glucose,Whole Blood 90 mg/dL (70-110)
[2022-03-16 10:12] VITALS: RESP 18
[2022-03-16 10:19] LABS: INR 3.4 (<1.2); Partial Thromboplastin Time 46.6 sec (22.0-30.0); Prothrombin Time 33.5 sec (9.0-12.0)
[2022-03-16] MEDS ORDERED: DEXAMETHASONE SOD PHOSPHATE 10 MG/ML 1 ML VIAL IVP STA (10:19)
[2022-03-16 10:26] LABS: Albumin 2.9 g/dL (3.5-5.0); Calcium 8.2 mg/dL (8.4-10.2); Potassium 4.4 mmol/L (3.5-5.1); Total Bilirubin 0.9 mg/dL (0.2-1.3); Total Protein 5.8 g/dL (6.3-8.2)
--- NOTE | 2022-03-16 10:29 | CT ---
EXAMINATION TYPE: CT angio head neck CT DLP: 440.4 mGycm, Automated exposure control for dose reduction was used. DATE OF EXAM: 03/16/2022 10:08 AM COMPARISON: CT brain same day.. CLINICAL INDICATION:Female, 86 years old with history of Neuro deficit, acute, stroke suspected; PHH, Right arm weakness. TECHNIQUE: Axially acquired helical CT angiogram of the head and neck was obtained with contrast util izing 75 cc of Isovue-370 administered intravenously. Axial images are supplemented with 3D reconstru ctions which were post-processed at an independent workstation. NASCET criteria used. FINDINGS: CTA HEAD: Redemonstration of intraparenchymal hemorrhage of the left posterior frontal/parietal region with sub arachnoid hemorrhage. No evidence of acute mass effect, or midline shift. The ventricles, sulci, and cisterns are unremarkable. The visualized portions of the internal carotid arteries, middle cerebral arteries, anterior cerebral arteries, and posterior cerebral arteries are patent. The basilar and vertebral arteries are patent. The lenses are removed from the globes. There is calci fied senile plaque bilaterally. CTA NECK: Right Carotid System: The common carotid artery and external carotid artery are patent. The carotid bifurcation demonstrate s calcified atherosclerotic plaquing with 25-50% stenosis. The remaining portions of the internal car otid artery demonstrate normal size without significant narrowing. Left Carotid System: The common carotid artery and external carotid artery are patent. The carotid bifurcation demonstrate s calcified plaquing without evidence of hemodynamically significant stenosis. The remaining portions of the internal carotid artery demonstrate normal size without significant narrowing. Vertebral arteries are patent without evidence hemodynamically significant stenosis. There is a three-vessel aortic arch. The origins of the great vessels are patent. No evidence of hemo dynamically significant stenosis. Cardiac conduction device with leads exiting the [id number] on the inferior aspect of the images. There is atelectasis changes within the right upper lung. There is a small right and trace left pleur al effusion. Small amount of pleural fluid is seen within the right major fissure. Sternotomy wires a re present. There is a dilated esophagus filled with air. Multilevel disc degeneration changes are se en throughout the visualized spine. Scattered atherosclerosis of the arterial vasculature. IMPRESSION: 1. No evidence of dissection of the cervical internal carotid arteries or vertebral arteries. 2. No evidence of high-grade stenosis or intracranial aneurysm. 3. Redemonstration of left posterior frontal/parietal region intraparenchymal hemorrhage with associa lilliam subarachnoid hemorrhage. 4. Atherosclerosis of the carotid bifurcations with predominantly calcified plaque. There is 25-50% s tenosis on the right and no significant stenosis on the left. 5. Small right and trace left pleural effusion.
--- NOTE | 2022-03-16 10:38 | XR ---
EXAMINATION TYPE: XR chest 2V DATE OF EXAM: 03/16/2022 COMPARISON: 07/03/2021 HISTORY: Shortness of breath TECHNIQUE: Frontal and lateral views of the chest are obtained. FINDINGS: Scattered senescent parenchymal changes noted. Hyperinflation compatible with COPD. There is pulmonary venous congestion with cardiomegaly and scattered infiltrates as well as small mod erate right-sided pleural effusion. Correlate for congestive failure. Mediastinal structures are stable and grossly unremarkable. No evidence for hilar prominence. Degenerative changes dorsal spine. IMPRESSION: 1. Findings are felt to reflect congestive failure. Underlying infiltrates of other etiology difficul t to exclude. Progress studies are advised.
[2022-03-16 10:46] VITALS: BP 127/58; PULSE 83; TEMP 97.8
[2022-03-16 10:54] LABS: Anisocytosis Slight; HCT 28.5 % (34.0-46.0); Hypochromasia Moderate; MCH 25.8 pg (25.0-35.0); MCHC 31.4 g/dL (31.0-37.0); MCV 82.2 fL (80.0-100.0); Mean Platelet Volume 7.8; Platelet Count 237 k/uL (150-450); RBC 3.47 m/uL (3.80-5.40); RDW 16.9 % (11.5-15.5); WBC 4.7 k/uL (3.8-10.6)
[2022-03-16 15:13] LABS: Band Neutrophils % 1 %; Lymphocytes # (M) 0.56 k/uL (1.0-4.8); Monocytes # (M) 0.71 k/uL (0-1.0); Myelocytes # (M) 0.09 k/uL (0); Myelocytes % 2 %; Neutrophils % (M) 71 %; Nucleated Red Blood Cells 0 /100 WBC (0-0); Total Cells Counted 200
[2022-03-16 15:14] LABS: Poikilocytosis (M) Present
== END 2022-03-16 10:46 | disposition other institution (70) ==
LOC: EC 09:41
DX: I63.9 Cerebral infarction, unspecified (principal); I61.9 Nontraumatic intracerebral hemorrhage, unspecified; R79.1 Abnormal coagulation profile; R29.706 NIHSS score 6; J44.9 Chronic obstructive pulmonary disease, unspecified; I48.91 Unspecified atrial fibrillation; K21.9 Gastro-esophageal reflux disease without esophagitis; E07.9 Disorder of thyroid, unspecified; I11.0 Hypertensive heart disease with heart failure; I50.9 Heart failure, unspecified; Z88.0 Allergy status to penicillin; Z88.1 Allergy status to other antibiotic agents; Z79.899 Other long term (current) drug therapy; Z79.890 Hormone replacement therapy; Z79.01 Long term (current) use of anticoagulants; Z79.51 Long term (current) use of inhaled steroids
CPT/HCPCS: 36415; 93005; 86900; 86901; 80053; 84484; 85025; 85610; 85730; 86850; 86870; 86880; 71046; 70496; 70450; 70498; 99291; 96365; 96368; 96375; J3430; J1100; Q9967